=== PATIENT | male | born 1975 | race African-American/Black ===

== ENCOUNTER 2016-11-03 20:44 | Inpatient (IN) ==
--- NOTE | 2016-11-03 21:42 | Emergency Department Note ---
Disposition Time of Disposition: 00:27 <Matthias Andrews - Last Filed: 11/04/16 00:26> <Merary Elder - Last Filed: 11/04/16 03:37> Clinical Impression: Community acquired pneumonia Disposition: Admitted As Inpatient Condition: Fair URI/Sore Throat HPI - General Source: patient Limitations: no limitations Nursing Notes Reviewed: Yes Vital Signs Reviewed: Yes - History of Present Illness Pt Subjective Complaint: fever, cough, flu symptoms, sore throat, nasal congestion, sinus pain, earache, headache Onset (ago): week(s) (2 weeks) Duration: gradually worsening Severity: severe Improves with: nothing Worsens with: swallowing If sputum, description: yellow, green Treatments prior to arrival: "cold medicine" (mucinex) <Matthias Andrews - Last Filed: 11/04/16 00:26> <Merary Elder - Last Filed: 11/04/16 03:37> - General Chief Complaint: ED Shortness of Breath/Dyspnea Stated Complaint: body aches x 2 wks cough/congestion pain in lungs Time Seen by Provider: 11/03/16 21:34 - History of Present Illness HPI Narrative: 40-year-old male presents to the emergency department with multiple complaints. He complains of a cough that is productive of "green, yellow, brown, and vazquez" sputum. He complains of generalized body aches and myalgias. He complains of bilateral rib and chest wall pain that is worsened with inspiration. He complains of bilateral ear pain, sinus pain and pressure, and sore throat. He complains of a few episodes of both vomiting and diarrhea. He complains of a fever greater than 100 degrees Fahrenheit for several days in a row. He denies any hemoptysis. He states that in total, symptoms have been present but gradually worsening over the course of the past 2 weeks. He has taken over-the- counter Mucinex with only modest relief of symptoms. He denies any known sick contacts or recent foreign travel. (Matthias Andrews) - Related Data Allergies Allergy/AdvReac Type Severity Reaction Status Date / Time No Known Allergies Allergy Verified 11/03/16 21:05 Constitutional: Reports: as per HPI, fever, chills. Denies: weakness, weight change Eyes: Denies: eye pain, eye discharge, vision change ENT ED: Reports: as per HPI, throat pain, congestion. Denies: ear pain, dental pain, hearing loss, epistaxis, dysphagia Cardiovascular: Denies: chest pain, palpitations, dyspnea on exertion, edema, syncope Respiratory: Reports: as per HPI, cough, sputum production. Denies: dyspnea, wheezes, hemoptysis, stridor Gastrointestinal: Reports: as per HPI, vomiting, diarrhea. Denies: abdominal pain, nausea, constipation, hematemesis, melena, hematochezia Genitourinary: Denies: urgency, dysuria, frequency, hematuria Musculoskeletal: Reports: as per HPI, myalgia (Generalized). Denies: back pain , neck pain, arthralgia Integumentary: Denies: rash, abrasion, lesions Neurological: Denies: headache, weakness, numbness, paresthesias, confusion, abnormal gait, vertigo Psychiatric: Denies: anxiety, depression, suicidal thoughts, homicidal thoughts , auditory hallucinations, visual hallucinations Endocrine: Denies: fatigue Hematological/Lymphatic: Denies: easy bleeding, easy bruising Allergic/Immunologic: Denies: facial swelling, urticaria <Matthias Andrews R - Last Filed: 11/04/16 00:26> URI PMH - Past Medical History Medical history: Reports: no medical history Psychiatric history: Reports: no psych history - Social History Smoking Status: Current every day smoker Alcohol use: Reports: none Drug use: Reports: opiates, IVDU <Matthias Andrews R - Last Filed: 11/04/16 00:26> Physical Exam - General Limitations: no limitations General appearance: alert - Head Head exam: atraumatic, normocephalic, normal inspection - Eye Eye exam: Present: normal appearance, PERRL, EOMI. Absent: nystagmus - Expanded ENT Exam External ear exam: Present: normal external inspection. Absent: pain with movement, periauricular adenopathy TM/Canal: Hemotympanum: Negative, Erythema: Negative, Bulging: Negative, Effusion: Negative, Perforation: Negative, Loss of Landmarks: Negative, Foreign body: Negative, Cerumen impaction: Negative, Canal discharge: Negative, Canal tenderness: Negative Nose exam: sinus tenderness (Frontal and maxillary sinus tenderness to palpation ). negative: rhinorrhea Mouth exam: Present: normal external inspection, tongue normal. Absent: drooling, trismus, lip swelling, tounge swelling Teeth exam: Present: normal inspection Throat exam: Present: normal inspection, tonsillar erythema (Mild). Absent: tonsillomegaly, tonsillar exudate, R peritonsillar mass, L peritonsillar mass, muffled voice - Neck Neck exam: Present: normal inspection, full ROM, trachea midline, lymphadenopathy (Bilateral tonsillar lymphadenopathy upon palpation) - Chest Chest inspection: Present: normal inspection, symmetric chest wall rise. Absent : tenderness - Respiratory Respiratory exam: Present: other (Lungs sounds coarse to auscultation bilaterally). Absent: respiratory distress, wheezes, stridor, accessory muscle use - Cardiovascular Cardiovascular exam: Present: regular rate, normal rhythm, normal heart sounds - Abdominal Exam Abdominal exam: Present: soft, Non-Tender, normal bowel sounds. Absent: tenderness, distention, guarding, rebound, rigidity - Extremities Exam Extremities exam: Present: normal inspection, full ROM. Absent: tenderness, pedal edema - Neurological Exam Neurological exam: Present: alert, oriented X3 - Psychiatric Psychiatric exam: Present: normal affect, normal mood - Skin Skin exam: Present: warm, dry, intact, normal color. Absent: rash, cyanosis, diaphoresis, erythema, pallor, mottled <Matthias Andrews R - Last Filed: 11/04/16 00:26> Course <Matthias Andrews - Last Filed: 11/04/16 00:26> <Merary Elder - Last Filed: 11/04/16 03:37> Course Narrative: 2359: Case discussed with Dr. Miller. Dr. Alva recommends changing the Levaquin to vancomycin and Zosyn. She also recommends admission to the hospital under the service of the hospitalist for further evaluation and continuation of IV antibiotics. The patient is in agreement with this plan. 0022: I discussed this patient's case with Dr. Francisco. Dr. Francisco accepts the patient for admission under the hospitalist service. (Matthias Andrews R) Vital Signs Temperature 100.3 F H 11/03/16 21:05 Pulse Rate 116 11/03/16 21:05 Respiratory Rate 24 11/03/16 21:05 Blood Pressure 114/68 11/03/16 21:05 O2 Sat by Pulse Oximetry 90 L 11/03/16 21:05 Temperature 98.8 F 11/04/16 01:35 Pulse Rate 100 11/04/16 02:52 Respiratory Rate 18 11/04/16 01:35 Blood Pressure 130/77 11/04/16 01:35 O2 Sat by Pulse Oximetry 99 11/04/16 02:52 Oxygen Delivery Oxygen Delivery Venti Mask Upper Respiratory Infection - Medical Records Medical records reviewed: Yes I reviewed the patient's medical records. - Lab Data Lab results reviewed: Yes I reviewed the patient's lab results. Result diagrams: 11/03/16 22:36 11/03/16 22:36 - Radiology Data Radiology results reviewed: Yes I reviewed the patient's radiology results. <Matthias Andrews - Last Filed: 11/04/16 00:26> - Lab Data Result diagrams: 11/03/16 22:36 11/03/16 22:36 <Merary Elder - Last Filed: 11/04/16 03:37> - MDM Narrative Medical decision making narrative: The patient is tachycardic at 116 and slightly hypoxic at 90% on room air. Upon auscultation of the patient's lungs, as well as hearing him cough and visualizing production of sputum, I do not feel as though a PE is of concern. We will obtain a nasal influenza swab, chest x-ray, and administer nebulized albuterol and reevaluated. (Matthias Andrews) - Lab Data Lab results narrative: Laboratory Last Values WBC 14.7 K/mcL (4.3-11.1) H 11/03/16 22:36 RBC 5.24 M/mcL (4.19-5.50) 11/03/16 22:36 Hgb 13.2 g/dL (12.9-16.9) 11/03/16 22:36 Hct 40.7 % (37.5-50.1) 11/03/16 22:36 MCV 77.7 fL (83.0-100.0) L 11/03/16 22:36 MCH 25.2 pg (28.0-33.3) L 11/03/16 22:36 MCHC 32.4 g/dL (31.6-35.5) 11/03/16 22:36 RDW 14.4 % (11.5-14.5) 11/03/16 22:36 Plt Count 307 K/mcL (140-400) 11/03/16 22:36 MPV 9.8 fL (9.4-12.4) 11/03/16 22:36 Immature Gran % 4.1 % (0-4) H 11/03/16 22:36 Seg Neutrophils % 83.6 % 11/03/16 22:36 Lymphocytes % 6.2 % 11/03/16 22:36 Monocytes % 5.8 % 11/03/16 22:36 Eosinophils % 0.1 % 11/03/16 22:36 Basophils % 0.2 % 11/03/16 22:36 Neutrophils # 12.3 K/mcL (1.6-8.9) H 11/03/16 22:36 Lymphocytes # 0.9 K/mcL (0.6-4.6) 11/03/16 22:36 Monocytes # 0.9 K/mcL (0.0-1.3) 11/03/16 22:36 Eosinophils # 0.0 K/mcL (0.0-0.6) 11/03/16 22:36 Basophils # 0.0 K/mcL (0.0-0.2) 11/03/16 22:36 Immature Plt Fraction 4.4 % (1.1-6.1) 11/03/16 22:36 Sodium 127 mEq/L (136-145) L 11/03/16 22:36 Potassium 4.2 mEq/L (3.5-4.5) 11/03/16 22:36 Chloride 91 mEq/L (98-109) L 11/03/16 22:36 Carbon Dioxide 23 mEq/L (19-29) 11/03/16 22:36 BUN 34 mg/dL (8-26) H 11/03/16 22:36 Creatinine 1.30 mg/dL (0.72-1.25) H 11/03/16 22:36 Est GFR ( Amer) > 60 (> 60) 11/03/16 22:36 Est GFR (Non-Af Amer) > 60 (> 60) 11/03/16 22:36 BUN/Creatinine Ratio 26 (6-26) 11/03/16 22:36 Glucose 94 mg/dL (70-99) 11/03/16 22:36 Calculated Osmolality 271 (280-300) L 11/03/16 22:36 Lactic Acid 1.9 mmol/L (0.5-2.2) 11/03/16 22:36 Calcium 9.3 mg/dL (8.6-10.8) 11/03/16 22:36 (DarrylMatthias R) Lab Results 11/03/16 11/03/16 11/03/16 Range/Units 22:36 22:36 22:36 WBC 14.7 H (4.3-11.1) K/mcL RBC 5.24 (4.19-5.50) M/mcL Hgb 13.2 (12.9-16.9) g/dL Hct 40.7 (37.5-50.1) % MCV 77.7 L (83.0-100.0) fL MCH 25.2 L (28.0-33.3) pg MCHC 32.4 (31.6-35.5) g/dL RDW 14.4 (11.5-14.5) % Plt Count 307 (140-400) K/mcL MPV 9.8 (9.4-12.4) fL Immature Gran % 4.1 H (0-4) % Seg Neutrophils % 83.6 % Lymphocytes % 6.2 % Monocytes % 5.8 % Eosinophils % 0.1 % Basophils % 0.2 % Neutrophils # 12.3 H (1.6-8.9) K/mcL Lymphocytes # 0.9 (0.6-4.6) K/mcL Monocytes # 0.9 (0.0-1.3) K/mcL Eosinophils # 0.0 (0.0-0.6) K/mcL Basophils # 0.0 (0.0-0.2) K/mcL Immature Plt Fraction 4.4 (1.1-6.1) % Sodium 127 L (136-145) mEq/L Potassium 4.2 (3.5-4.5) mEq/L Chloride 91 L (98-109) mEq/L Carbon Dioxide 23 (19-29) mEq/L BUN 34 H (8-26) mg/dL Creatinine 1.30 H (0.72-1.25) mg/dL Est GFR ( Amer) > 60 (> 60) Est GFR (Non-Af Amer) > 60 (> 60) BUN/Creatinine Ratio 26 (6-26) Glucose 94 (70-99) mg/dL Calculated Osmolality 271 L (280-300) Lactic Acid 1.9 (0.5-2.2) mmol/L Calcium 9.3 (8.6-10.8) mg/dL - Radiology Data Chest X-Ray 11/03/16 21:34 IMPRESSION: 1. Bilateral lung infiltrates, right side greater than left, with a probable right pleural effusion. Findings are concerning for pneumonia. D/ / 11/03/2016 22:18:30 Dez Shirley MD / marco Interpreting Provider: Dez Shirley MD (Matthias Andrews) Critical Care Time <Matthias Andrews - Last Filed: 11/04/16 00:26> Total Critical Care Time: 30 <Merary Elder - Last Filed: 11/04/16 03:37> Attestation: The high probability of a clinically significant, sudden or life threatening deterioration of the [respiratory] system(s) required my full and direct attention, intervention and personal management. The aggregate critical care time was [30] minutes. This time is in addition to time spent performing reported procedures but includes the following: [X] Data Review and interpretation [X] Patient assessment and monitoring of vital signs [X] Documentation [X] Medication orders and management (Merary Elder) Attestation Statement <Matthias Andrews - Last Filed: 11/04/16 00:26> <Merary Elder - Last Filed: 11/04/16 03:37> - Attestation Attestation: I personally interviewed and examined this patient and my medical decision- making was reviewed with the PATRICIA, Matthias Andrews. I agree with the documented findings, disposition and treatment plan as described in the documentation. Patient is a 40-year-old otherwise healthy male who presents to the emergency department today with a two-week history of generalized body aches, subjective fevers and chills, mild upper respiratory symptoms that have gradually progressed to cough and worsening shortness of breath with difficulty breathing. Patient with no underlying history of lung disease but is a smoker. Patient arrives with mild respiratory distress with increased work of breathing, tachypnea and hypoxia on room air. Patient is tachycardic but has a stable blood pressure. Patient was placed on a cardiac catheterization technologist, continuous pulse ox with supplemental oxygen initiated, 2 large-bore IVs were established IV fluids were initiated, labs are drawn and sent, and chest film was obtained. Laboratory values show leukocytosis with left shift, mild acute renal insufficiency which I suspect is secondary to dehydration. Patient's rapid flu swab is negative. His lactate is 1.9. Patient's 2 view chest x-ray shows bilateral pneumonia right greater than left with a small right pleural effusion suggestive of pneumonia. Patient was placed on a 40% Ventimask with improvement in oxygenation. We will continue to monitor closely in regards to patient's work of breathing. IV antibiotics were initiated, cultures were obtained and IV fluids continued. Medication will be administered for patient' s fever, at this time tachycardia most likely secondary to fever as well as mild dehydration. Due to patient's respiratory distress we did call the hospitalist and recommend stepdown admission for the patient for bilateral pneumonia. Patient remains mildly tachycardic with fluids infusing, blood pressure is stable at this time. Patient's mentation is good he is awake alert and oriented 4. Patient will be admitted to the hospitalist service for further evaluation and management of his bilateral pneumonia. (Merary Elder)
[2016-11-03] MEDS ORDERED: Albuterol 2.5 MG/3 ML NEBULIZER IH ONE (21:45)
[2016-11-03] MEDS ORDERED: 0.9 % Sodium Chloride 1,000 ML IVC ONE (22:22)
[2016-11-03] MEDS ORDERED: Levofloxacin 750 MG/150 ML 750 MG/150 ML BAG IVPB ONE (22:50)
[2016-11-03 22:51] LABS: Basophils % 0.2 %; Eosinophils % 0.1 %; Hematocrit 40.7 % (37.5-50.1); Hemoglobin 13.2 g/dL (12.9-16.9); Immature Granulocytes % 4.1 % (0-4); Immature Platelets 4.4 % (1.1-6.1); Lymphocytes # 0.9 K/mcL (0.6-4.6); Lymphocytes % 6.2 %; Mean Corpuscular HGB Conc 32.4 g/dL (31.6-35.5); Mean Corpuscular Hemoglobin 25.2 pg (28.0-33.3); Mean Corpuscular Volume 77.7 fL (83.0-100.0); Mean Platelet Volume 9.8 fL (9.4-12.4); Monocytes # 0.9 K/mcL (0.0-1.3); Monocytes % 5.8 %; Neutrophils # 12.3 K/mcL (1.6-8.9); Platelet Count 307 K/mcL (140-400); Red Blood Count 5.24 M/mcL (4.19-5.50); Red Cell Distribution Width 14.4 % (11.5-14.5); Segmented Neutrophils % 83.6 %
[2016-11-03 23:01] LABS: BUN/Creatinine Ratio 26 (6-26); Blood Urea Nitrogen 34 mg/dL (8-26); Calcium 9.3 mg/dL (8.6-10.8); Carbon Dioxide 23 mEq/L (19-29); Chloride 91 mEq/L (98-109); Glucose 94 mg/dL (70-99); Osmolality,Calculated 271 (280-300); Potassium 4.2 mEq/L (3.5-4.5); Sodium 127 mEq/L (136-145); eGFR For African Americans > 60 (> 60); eGFR For Non-African Americans > 60 (> 60)
[2016-11-04] MEDS ORDERED: Piperacillin/Tazobactam 3.375 GM in D5% in Water (Mini-Bag+) 100 ML IVPB ONE
[2016-11-04] MEDS: Vancomycin 1,500 MG in D5% in Water 250 ML IVPB SCH ×2 (00:21→15:28)
[2016-11-04] MEDS ORDERED: Levofloxacin 750 MG/150 ML 750 MG/150 ML BAG IVPB ONE (00:24)
[2016-11-04] MEDS ORDERED: 0.9 % Sodium Chloride 1,000 ML IVC ONE ×2 (00:51→02:37)
--- NOTE | 2016-11-04 02:19 | Internal Med History&Physical ---
<Wes Henderson - Last Filed: 11/04/16 06:00> Date of Encounter: 11/04/16 Time of Encounter: 01:45 Assessment and Plan (1) Acute respiratory failure with hypoxia Current visit: Yes Status: Acute Patient presents with pneumonia, pleural effusion (parapneumonic versus empyema) , and who is requiring 11 L via Ventimask to maintain oxygenation. Continue supplemental oxygen as needed to maintain adequate oxygenation Breathing treatments with duo nebs scheduled and as needed Continue antibiotics with ceftriaxone, Levaquin, vancomycin Patient received 3 L normal saline, continue 125 mL an hour normal saline We will obtain echocardiogram to further evaluate for possible endocarditis UA with reflex culture, strep antigen, Legionella antigen Blood cultures 2 Telemetry Continuous pulse oximetry Consult to pulmonology for assistance in continued management and care and for health evaluating patient pleural effusion (2) Severe sepsis Current visit: Yes Status: Acute Patient presents with sepsis likely pulmonary source, and evidence of end organ damage with an elevated serum creatinine as well as acute respiratory failure requiring 11 L via Ventimask in order to maintain adequate oxygenation. Plan as above (3) Pleural effusion Current visit: Yes Status: Acute Patient has probable right pleural effusion, concerning for parapneumonic effusion versus empyema given his presentation with acute respiratory failure and pneumonia. We will consult pulmonology for assistance and continued management/care Plan as above (4) Community acquired pneumonia Current visit: Yes Status: Acute Patient presents with possible right-sided pleural effusion. Concerning for possible pneumonia. Elevated white count, temperature, tachycardia certainly support this diagnosis. Plan as above (5) REMI (acute kidney injury) Current visit: Yes Status: Acute Patient keep kidney injury likely due to decreased by mouth intake recently, patient sepsis likely contributory, and appears prerenal per the laboratory at this time. Patient received 3 L bolus of normal saline Continue normal saline at 125 mL an hour Lab patient take by mouth We will continue to monitor kidney function with daily chemistry (6) Intravenous drug abuse Current visit: Yes Status: Acute History of IV drug abuse, last use today. Adding to concern of possible bacteremia and endocarditis as well as MRSA infection. Patient found in his room this morning around 5 AM with his own syringe tried to access his IV. Security was called (7) DVT prophylaxis Current visit: Yes Status: Acute 5000 units heparin 3 times a day Internal Medicine - H&P: HPI Chief complaint: Shortness of breath Admitted From: Emergency Dept Plans for Post Hospital Care: Home History of present illness: Mr. Lawrence is a 40 year old male with history of current IV drug usage (heroin) who presents to the ED after 2 weeks worsening respiratory symptoms. He reports having progressively worsening shortness of breath over the last 2 weeks , prompting his presentation to the emergency room last night. He reports in this time has had a cough has been productive of green, yellow, brownish sputum. He also reports body aches as well as bilateral chest wall pain on deep inspiration and coughing. He states today he developed nausea and vomiting , but reports having several episodes of diarrhea earlier. He also reports he is having a fever. He denies sore throat, denies pain with swallowing, denies sinus pain, denies ear pain. Past Med Surg Social Fam HX - Past Medical History Medical history: no medical history Psychiatric history: no psych history - Social History Smoking Status: Current every day smoker Packs per day: one Smokeless Tobacco Status: No Alcohol use: none Drug use: opiates, IVDU - Family History Mother History Unknown: Yes Age: 36 Hx Family Cancer: Yes Internal Medicine - H&P: Meds Allergies No Known Allergies Allergy (Verified 11/03/16 21:05) - Constitutional Constitutional: fever(s), lethargy, weakness, no anorexia, no chills, no excessive sweating - EENT Eyes: no change in vision, no discharge, no pain, no photophobia Nose, mouth and throat: no dysphagia, no nasal discharge, no neck pain, no sore throat - Cardiovascular Cardiovascular ROS IM: as per HPI, chest pain, dyspnea, no diaphoresis, no edema , no lightheadedness, no palpitations - Respiratory Respiratory: as per HPI, cough, dyspnea, pain on inspiration, change in phlegm color, pain with cough, no hemoptysis - Gastrointestinal Gastrointestinal: abdominal pain, diarrhea, no constipation, no fecal incontinence, no hematemesis, no hematochezia, no loose stools, no melena, no nausea, no vomiting - Genitourinary Genitourinary ROS male: no dysuria, no hematuria - Musculoskeletal Musculoskeletal ROS IM: no back pain, no numbness, no tingling - Integumentary Integumentary IM: no rash, no unusual bruising - Neurological Neurological ROS: no confusion, no convulsions, no focal weakness, no numbness, no tingling, no tremor(s), no weakness - Hematologic/Lymphatic Hematologic/Lymphatic: no easy bruising - Constitutional Vitals: Temp Pulse Resp BP Pulse Ox 98.8 F 109 18 130/77 99 11/04/16 01:35 11/04/16 01:35 11/04/16 01:35 11/04/16 01:35 11/04/16 01:35 Exam: General: Cooperative, pleasant, in moderate distress, alert and oriented 3, answers questions appropriately Head: Normocephalic, atraumatic Eye: Conjunctiva pink, EOMI, PERRL Neck: Supple, trachea midline, mucosa moist, vazquez colored sputum and oropharynx Respiratory: Accessory muscle usage of respiration present, decreased breath sounds bilaterally, Rales auscultated over right middle lobe Cardiovascular: Regular rate and rhythm, S1 and S2 present, no murmurs/rubs/ gallops/clicks appreciated, no splinter hemorrhages or raw spots identified GI/abdominal: Nondistended, nontender, soft, normal bowel sounds, no peritoneal signs Extremities: No calf tenderness, noncyanotic, no pedal edema appreciated, warm, lower extremity pulses palpable and symmetrical Neurological: Alert and oriented 3, no facial droop, no focal deficits Skin: Dry, intact, normal color Internal Med - H&P Results - Labs CBC & Chem 7: 11/04/16 04:51 11/04/16 04:51 <Carlos A Smyth R - Last Filed: 11/04/16 11:05> Internal Medicine - H&P: HPI History of present illness: Mr. Lawrence is a 40 year old male All Systems PM: A 10-system review of systems was performed and is negative for pertinent findings except as documented above in the HPI. - Constitutional Vitals: Temp Pulse Resp BP Pulse Ox 98.8 F 87 24 121/83 96 11/04/16 10:40 11/04/16 10:40 11/04/16 10:40 11/04/16 10:40 11/04/16 10:40 Internal Med - H&P Results - Labs CBC & Chem 7: 11/04/16 04:51 11/04/16 04:51 Labs: Short CBC 11/04/16 Range/Units 04:51 WBC 13.8 H (4.3-11.1) K/mcL Hgb 11.9 L (12.9-16.9) g/dL Hct 36.3 L (37.5-50.1) % Plt Count 245 (140-400) K/mcL Neutrophils # 11.0 H (1.6-8.9) K/mcL BMP 11/04/16 04:51 Sodium 130 L Potassium 4.1 Chloride 102 Carbon Dioxide 18 L BUN 23 D Creatinine 0.80 Glucose 109 H Calcium 7.4 L D Liver Function 11/04/16 Range/Units 04:51 Total Bilirubin 1.7 H (0.2-1.2) mg/dL AST 55 H (5-34) Units/L ALT 52 (0-55) Units/L Alkaline Phosphatase 84 (38-126) Units/L Albumin 1.7 L (3.5-5.0) g/dL - Attending Attestation I performed a history and physical examination of the patient and discussed his management with the Resident/Professional Security Officer. I reviewed the residents note and agree with the documented findings and plan of care, with additions as below. 40 year old male with history of IV drug reports progressively worsening shortness of breath over the last 2 weeks. He reports cough productive of in the sputum. O/E: He was hypoxic at presentation to the ER with the oxygen saturation of 87% on room air, tachycardic with heart rate of 116. Diminished breath sounds at the right base; crackles in the right midzone. Labs show leukocytosis, elevated BUN/creatinine. Chest x-ray showed bilateral pneumonia and right pleural effusion. Will treat him with levofloxacin and ceftriaxone for community acquired pneumonia. Pulmonary consultation for further advise on pneumonia and pleural effusion. Will obtain echocardiogram to exclude endocarditis. Empirically on vancomycin, for possible endocarditis.
[2016-11-04] MEDS ORDERED: Ondansetron 4 MG/2 ML VIAL IVP PRN (02:25)
[2016-11-04] MEDS ORDERED: Naloxone 0.4 MG/ML INJ IVP PRN (02:25)
[2016-11-04] MEDS ORDERED: 0.9 % Sodium Chloride 1,000 ML IVC SCH (02:45)
[2016-11-04 04:12] LABS: ABG Base Excess 2.6 mEq/L (-2.0 to 3.0); ABG HCO3 26.2 mEQ/L (21-27); ABG Oxygen Saturation 94 % (95-98); ABG PCO2 36 mmHg (35-45); ABG PH 7.47 pH Units (7.32-7.45); ABG PO2 67 mmHg (85-104); ABG TCO2 27.3 mEq/L (20-26); Blood Gas FiO2 40 %
[2016-11-04] MEDS ORDERED: Ipratropium/Albuterol Neb 3 ML IH PRN (04:13)
[2016-11-04] MEDS: *HR* Heparin 5,000 UNIT/ML VIAL SQ SCH ×4 (05:05→21:37)
[2016-11-04 05:17] LABS: Hematocrit 36.3 % (37.5-50.1); Hemoglobin 11.9 g/dL (12.9-16.9); Mean Corpuscular HGB Conc 32.8 g/dL (31.6-35.5); Mean Corpuscular Hemoglobin 25.9 pg (28.0-33.3); Mean Corpuscular Volume 78.9 fL (83.0-100.0); Mean Platelet Volume 10.2 fL (9.4-12.4); Platelet Count 245 K/mcL (140-400); Red Cell Distribution Width 14.3 % (11.5-14.5)
[2016-11-04 05:38] LABS: Alanine Aminotransferase 52 Units/L (0-55); Albumin/Globulin Ratio 0.3 (1.1-2.2); Alkaline Phosphatase 84 Units/L (38-126); Aspartate Amino Transferase 55 Units/L (5-34); BUN/Creatinine Ratio 29 (6-26); Bilirubin,Total 1.7 mg/dL (0.2-1.2); Carbon Dioxide 18 mEq/L (19-29); Chloride 102 mEq/L (98-109); Globulin 5.5 g/dL (2.4-3.5); Glucose 109 mg/dL (70-99); Osmolality,Calculated 274 (280-300); Sodium 130 mEq/L (136-145); Total Protein 7.2 g/dL (6.0-8.3); eGFR For African Americans > 60 (> 60); eGFR For Non-African Americans > 60 (> 60)
[2016-11-04 05:39] LABS: Albumin 1.7 g/dL (3.5-5.0); Blood Urea Nitrogen 23 mg/dL (8-26); Calcium 7.4 mg/dL (8.6-10.8)
[2016-11-04 05:40] LABS: Potassium 4.1 mEq/L (3.5-4.5)
[2016-11-04 05:44] LABS: INR 1.3; Prothrombin Time 14.5 Seconds (9.4-12.1)
[2016-11-04 05:46] LABS: Lymphocytes # 1.1 K/mcL (0.6-4.6); Monocytes # 1.4 K/mcL (0.0-1.3); Platelet Estimate Normal (Normal); Toxic Granulation Present (Not Present)
[2016-11-04] MEDS: Ipratropium/Albuterol Neb 3 ML IH SCH ×5 (08:16→23:29)
[2016-11-04] MEDS ORDERED: *HR* Promethazine 25 MG/ML VIAL IVP PRN (08:54)
--- NOTE | 2016-11-04 09:15 | Pulmonology Consult Note ---
<Marcie Farmer - Last Filed: 11/04/16 11:26> Date of Encounter: 11/04/16 Time of Encounter: 09:08 Assessment and Plan (1) Acute respiratory failure with hypoxia Current Visit: Yes Status: Acute Patient with acute respiratory failure with hypoxia secondary to multilobular pneumonia. He is requiring 12L supplemental oxygen to maintain oxygenation saturation. Patient denies any history of pulmonary disease or oxygen requirements. Patient may have underlying COPD with smoking history. CT chest showed multilobular pneumonia but no pleural effusion amendable to drainage. 1. Continue unasyn and vancomycine for antibiotic coverage - if legionella comes back positive will have to adjust antibiotic coverage. 2. Continue scheduled breathing treatments. 3. Continue and wean supplemental oxygen as tolerated. 4. Recommend starting prednisone 40mg PO for 5 days to help with the inflammatory process 5. Follow sputum cultures Appreciate consult. Feel free to call with questions or concern. (2) Severe sepsis Current Visit: Yes Status: Acute Severe sepsis secondary to multilobar pneumnoia. WBC is improving. This morning patient is afebrile, heart rate and respiratory rate are both improved. Continue plan as above. (3) Community acquired pneumonia Current Visit: Yes Status: Acute Community acquired multi-lobar pneumonia. No history of travel, recent hospitalization or penitent[facility] time. Continue antibiotics and plan as above. (4) Intravenous drug abuse Current Visit: Yes Status: Acute History of IV drug use. ECHO pending to evaluate for endocarditis. Blood cultures pending. History of Present Illness Consult date: 11/04/16 Reason for consult: cough, hypoxemia, pneumonia, pleural effusion Chief complaint: Productive cough, shortness of breath History of present illness: Mr Lawrence is a 40yo male with PMH including hepatitis C and IV drug use. Patient presented to the ED with chief complaint of progressive shortness of breath for the last 1-2 weeks. He reports associated cough productive of multicolored sputum, body aches, bilateral rib & chest pain worse with deep breaths, decreased PO intake runny nose, and congestion. He reports some episodes of nausea/vomiting and diarrhea. Patient denies changes in vision, ear or sinus pain, sore throat, dysphagia, abdominal pain, changes in bladder function or focal neurological deficits. Denies hemoptysis or unintentional weight loss. Patient had a Tmax of 100.3 here in the ED. He was tachycardic and tachypneic on arrival. CXR showed BL infiltrates and a possible right sided pleural effusion suggestive of pneumonia. On exam this morning, HR and RR appropriate and appears in no acute distress however patient is requiring 12L supplemental O2 via venti mask. Lungs diminished BL bases, right worse than left. No wheezing or rales. No murmurs heard on cardiac exam. Abdomen soft/non-tender. No pedal edema. Patient reports that he does smoke about 1ppd an has been for 15 years. He denies any history of pulmonary disease including COPD or asthma. He has never used inhalers or supplemental oxygen. He denies any family history of lung disease or lung cancer. Past Med Surg Social Fam HX - Past Medical History Medical history: hepatitis Psychiatric history: no psych history - Social History Smoking Status: Current every day smoker Packs per day: one Smokeless Tobacco Status: No Alcohol use: none Drug use: opiates, IVDU Recent Out of Country Travel Within the Last 8 Weeks: No - Family History Mother History Unknown: Yes Age: 36 Hx Family Cancer: Yes Medications and Allergies Buprenorphine HCl/Naloxone HCl [Bunavail 4.2-0.7 mg Film] 1 film BC BID [History] Allergies No Known Allergies Allergy (Verified 11/03/16 21:05) All Systems: A 10-system review of systems was performed and is negative for pertinent findings except as documented above in the HPI. - Constitutional Constitutional: chills, fever(s), no night sweats, no snoring, no weight loss - EENT Eyes: no loss of vision Ears: no decreased hearing, no tinnitus Nose, mouth and throat: nasal congestion, nasal discharge, no change in voice, no dizziness, no dysphagia, no hoarseness, no sinus pain, no sinus pressure, no sore throat - Cardiovascular Cardiovascular: chest pain (with inspriation ), dyspnea, dyspnea on exertion, no diaphoresis, no edema, no irregular heart rhythm, no lightheadedness, no orthopnea, no palpitations, no pedal edema - Respiratory Respiratory: cough, dyspnea, dyspnea on exertion, pain on inspirtation, chest congestion, excessive phlegm production, change in phlegm color, pain with cough , no hemoptysis, no wheezing, no snoring, no stridor - Gastrointestinal Gastrointestinal: diarrhea, nausea, vomiting, no abdominal pain, no hematemesis , no hematochezia, no melena - Genitourinary Genitourinary: no change in urinary stream, no dysuria - Musculoskeletal Musculoskeletal: myalgias - Integumentary Integumentary: no rash - Neurological Neurological: no behavioral changes, no confusion, no dizziness, no tingling, no weakness Physical Examination Vital Signs: Vital Signs, Last 4 Hours Temp Pulse Resp BP Pulse Ox 11/04/16 08:53 100 11/04/16 08:17 19 93 L 11/04/16 07:00 98.4 F 96 19 138/92 93 L General appearance: no acute distress, alert Eyes: nonicteric ENT: oropharynx moist Inspection: normal Auscultation: bilateral: diminished breath sounds Percussion: right: dull Cardiovascular: regular rate and rhythm Gastrointestinal: soft, non-tender, non-distended Integumentary: normal Extremities: no cyanosis, no edema Musculoskeletal: no deformities Gait: normal gait non-focal exam mood appropriate Results - Laboratory Findings CBC and BMP: 11/04/16 04:51 11/04/16 04:51 ABG ABG pH 7.47 pH Units (7.32-7.45) H 11/04/16 03:51 ABG pCO2 36 mmHg (35-45) 11/04/16 03:51 ABG pO2 67 mmHg (85-104) L 11/04/16 03:51 ABG O2 Saturation 94 % (95-98) L 11/04/16 03:51 PT/INR, D-dimer PT 14.5 Seconds (9.4-12.1) H 11/04/16 04:51 Abnormal lab findings: Abnormal lab results WBC 13.8 K/mcL (4.3-11.1) H 11/04/16 04:51 Hgb 11.9 g/dL (12.9-16.9) L 11/04/16 04:51 Hct 36.3 % (37.5-50.1) L 11/04/16 04:51 MCV 78.9 fL (83.0-100.0) L 11/04/16 04:51 MCH 25.9 pg (28.0-33.3) L 11/04/16 04:51 Immature Gran % 4.1 % (0-4) H 11/03/16 22:36 Metamyelocytes % 2.0 % (0) H 11/04/16 04:51 Neutrophils # 11.0 K/mcL (1.6-8.9) H 11/04/16 04:51 Monocytes # 1.4 K/mcL (0.0-1.3) H 11/04/16 04:51 Toxic Granulation Present (Not Present) A 11/04/16 04:51 PT 14.5 Seconds (9.4-12.1) H 11/04/16 04:51 ABG pH 7.47 pH Units (7.32-7.45) H 11/04/16 03:51 ABG pO2 67 mmHg (85-104) L 11/04/16 03:51 ABG Total CO2 27.3 mEq/L (20-26) H 11/04/16 03:51 ABG O2 Saturation 94 % (95-98) L 11/04/16 03:51 Sodium 130 mEq/L (136-145) L 11/04/16 04:51 Carbon Dioxide 18 mEq/L (19-29) L 11/04/16 04:51 BUN/Creatinine Ratio 29 (6-26) H 11/04/16 04:51 Glucose 109 mg/dL (70-99) H 11/04/16 04:51 Calculated Osmolality 274 (280-300) L 11/04/16 04:51 Calcium 7.4 mg/dL (8.6-10.8) L D 11/04/16 04:51 Total Bilirubin 1.7 mg/dL (0.2-1.2) H 11/04/16 04:51 AST 55 Units/L (5-34) H 11/04/16 04:51 Albumin 1.7 g/dL (3.5-5.0) L 11/04/16 04:51 Globulin 5.5 g/dL (2.4-3.5) H 11/04/16 04:51 Albumin/Globulin Ratio 0.3 (1.1-2.2) L 11/04/16 04:51 - Diagnostic Findings Chest x-ray: report reviewed, image reviewed Additional studies: Chest X-Ray 11/03/16 21:34 IMPRESSION: 1. Bilateral lung infiltrates, right side greater than left, with a probable right pleural effusion. Findings are concerning for pneumonia. D/ / 11/03/2016 22:18:30 Dez Shirley MD / marco Interpreting Provider: Dez Shirley MD - Clinical Findings Intake & Output: Intake & Output 11/03/16 11/04/16 11/04/16 23:59 07:59 15:59 Intake Total 2200 / 2450 Output Total 1550 / 2000 Balance 650 / 450 Consult Discharge Plan - Plan Referrals: NO,PCP [Primary Care Provider] - (PATIENT DOES NOT WANT ME TO FIND HIM A DOCTOR. I GAVE HIM THE 1800FIND A DOCTOR NUMBER.) <Verna Small - Last Filed: 11/04/16 16:25> All Systems: A 10-system review of systems was performed and is negative for pertinent findings except as documented above in the HPI. Physical Examination Vital Signs: Vital Signs, Last 4 Hours Temp Pulse Resp BP Pulse Ox 11/04/16 15:34 83 18 97 11/04/16 15:26 98.6 F 90 22 132/79 99 11/04/16 12:54 95 Results - Laboratory Findings CBC and BMP: 11/04/16 04:51 11/04/16 04:51 ABG ABG pH 7.47 pH Units (7.32-7.45) H 11/04/16 03:51 ABG pCO2 36 mmHg (35-45) 11/04/16 03:51 ABG pO2 67 mmHg (85-104) L 11/04/16 03:51 ABG O2 Saturation 94 % (95-98) L 11/04/16 03:51 PT/INR, D-dimer PT 14.5 Seconds (9.4-12.1) H 11/04/16 04:51 Abnormal lab findings: Abnormal lab results WBC 13.8 K/mcL (4.3-11.1) H 11/04/16 04:51 Hgb 11.9 g/dL (12.9-16.9) L 11/04/16 04:51 Hct 36.3 % (37.5-50.1) L 11/04/16 04:51 MCV 78.9 fL (83.0-100.0) L 11/04/16 04:51 MCH 25.9 pg (28.0-33.3) L 11/04/16 04:51 Immature Gran % 4.1 % (0-4) H 11/03/16 22:36 Metamyelocytes % 2.0 % (0) H 11/04/16 04:51 Neutrophils # 11.0 K/mcL (1.6-8.9) H 11/04/16 04:51 Monocytes # 1.4 K/mcL (0.0-1.3) H 11/04/16 04:51 Toxic Granulation Present (Not Present) A 11/04/16 04:51 PT 14.5 Seconds (9.4-12.1) H 11/04/16 04:51 ABG pH 7.47 pH Units (7.32-7.45) H 11/04/16 03:51 ABG pO2 67 mmHg (85-104) L 11/04/16 03:51 ABG Total CO2 27.3 mEq/L (20-26) H 11/04/16 03:51 ABG O2 Saturation 94 % (95-98) L 11/04/16 03:51 Sodium 130 mEq/L (136-145) L 11/04/16 04:51 Carbon Dioxide 18 mEq/L (19-29) L 11/04/16 04:51 BUN/Creatinine Ratio 29 (6-26) H 11/04/16 04:51 Glucose 109 mg/dL (70-99) H 11/04/16 04:51 Calculated Osmolality 274 (280-300) L 11/04/16 04:51 Calcium 7.4 mg/dL (8.6-10.8) L D 11/04/16 04:51 Total Bilirubin 1.7 mg/dL (0.2-1.2) H 11/04/16 04:51 AST 55 Units/L (5-34) H 11/04/16 04:51 Albumin 1.7 g/dL (3.5-5.0) L 11/04/16 04:51 Globulin 5.5 g/dL (2.4-3.5) H 11/04/16 04:51 Albumin/Globulin Ratio 0.3 (1.1-2.2) L 11/04/16 04:51 - Microbiology Findings Microbiology Findings: Microbiology, Last 48 Hours 11/04/16 14:00 Streptococcus pneumoniae Antigen (M - Final Urine,Clean Catch 11/04/16 14:00 Legionella Antigen - Final Urine,Clean Catch - Clinical Findings Intake & Output: Intake & Output 11/04/16 11/04/16 11/04/16 07:59 15:59 23:59 Intake Total 2200 / 2450 360 / 360 Output Total 1550 / 2000 475 / 475 Balance 650 / 450 -115 / -115 - Attending Attestation I examined this patient and my medical decision-making was reviewed with the CEMENT FINISHER HELPER/PA/Advanced Practice Nurse/Resident Physician. I agree with the documented findings, disposition and treatment plan as described except to the extent set forth below. Patient seen and examined. Labs, radiology, chart personally reviewed. Agree with resident's history and physical, assessment, plan with following comments: OBSTETRICAL NURSE: Patient follows commands, but lethargic and sleepy he has received sedative for symptoms suggestive of withdrawal, Pulmonary: Acute hypoxic respiratory failure secondary to multilobar pneumonia. Treatment with broad-spectrum antibiotics and follow-up cultures and sensitivities. Due to his history of substance abuse, septic emboli in the differential diagnosis and echocardiogram has been ordered. If no improvement will consider bronchoscopy. Cardiovascular: stable GI: Nutrition per dietary and GI prophylaxis per routine Heme: DVT prophylaxis per routine ID: Continue antibiotics and plan to de-escalation Renal; urine out put and renal funtion reviewed Endorcine: blood glucose is monitored Lines: all lines checked and no evidence of infections Skin: skin care to prevent pressure ulcers per nursing routine care Discussed with the family at the bedside and thanks for the consult.
[2016-11-04] MEDS: *HR* LORazepam 2 MG/ML VIAL IVP PRN ×2 (09:47→22:08)
[2016-11-04] MEDS: Nicotine 14 MG PATCH.TD24 TD SCH (09:47)
[2016-11-04] MEDS: Lactobacillus 1 EACH CAP.SPRINK PO SCH ×2 (09:47→21:37)
[2016-11-04] MEDS: Folic Acid 1 MG TABLET PO SCH (09:47)
[2016-11-04] MEDS: Pantoprazole 40 MG VIAL IVP SCH (09:48)
[2016-11-04] MEDS: 0.9 % Sodium Chloride 1,000 ML IVC SCH ×3 (09:48→23:32)
[2016-11-04] MEDS: Ampicillin/Sulbactam 3,000 MG in 0.9 % Sodium Chloride Mini Bag 100 ML IVPB SCH ×3 (12:32→23:32)
[2016-11-04 16:32] LABS: Adenovirus Not Detected (Not Detect); Bordetella Pertussis Not Detected (Not Detect); Chlamydophila pneumoniae Not Detected (Not Detect); Coronavirus 229E Not Detected (Not Detect); Coronavirus HKU1 Not Detected (Not Detect); Coronavirus NL63 Not Detected (Not Detect); Coronavirus OC43 Not Detected (Not Detect); Human Metapneumovirus Not Detected (Not Detect); Human Rhinovirus/Enterovirus Not Detected (Not Detect); Influenza A Subtype 2009 H1 Not Detected (Not Detect); Influenza A Untypeable Not Detected (Not Detect); Influenza B Not Detected (Not Detect); Mycoplasma pneumoniae Not Detected (Not Detect); Parainfluenza Virus 1 Not Detected (Not Detect); Parainfluenza Virus 2 Not Detected (Not Detect); Parainfluenza Virus 3 Not Detected (Not Detect); Parainfluenza Virus 4 Not Detected (Not Detect); Respiratory Syncytial Virus Not Detected (Not Detect)
[2016-11-05] MEDS: Vancomycin 1,500 MG in D5% in Water 250 ML IVPB SCH ×2 (00:31→13:31)
[2016-11-05] MEDS ORDERED: Levofloxacin 750 MG/150 ML 750 MG/150 ML BAG IVPB SCH (02:00)
[2016-11-05] MEDS: Ipratropium/Albuterol Neb 3 ML IH SCH ×6 (04:15→23:06)
[2016-11-05] MEDS: *HR* Heparin 5,000 UNIT/ML VIAL SQ SCH ×2 (05:25→15:57)
[2016-11-05] MEDS: Ampicillin/Sulbactam 3,000 MG in 0.9 % Sodium Chloride Mini Bag 100 ML IVPB SCH ×3 (05:25→17:03)
[2016-11-05] MEDS: *HR* LORazepam 2 MG/ML VIAL IVP PRN ×2 (05:28→12:34)
[2016-11-05 06:32] LABS: BUN/Creatinine Ratio 13 (6-26); Calcium 7.7 mg/dL (8.6-10.8); Carbon Dioxide 21 mEq/L (19-29); Chloride 107 mEq/L (98-109); Glucose 107 mg/dL (70-99); Osmolality,Calculated 287 (280-300); eGFR For African Americans > 60 (> 60); eGFR For Non-African Americans > 60 (> 60)
[2016-11-05 06:37] LABS: Blood Urea Nitrogen 9 mg/dL (8-26); Potassium 4.3 mEq/L (3.5-4.5); Sodium 139 mEq/L (136-145)
[2016-11-05 07:44] LABS: Hematocrit 34.3 % (37.5-50.1); Hemoglobin 11.5 g/dL (12.9-16.9); Immature Platelets 4.3 % (1.1-6.1); Mean Corpuscular HGB Conc 33.5 g/dL (31.6-35.5); Mean Corpuscular Hemoglobin 26.1 pg (28.0-33.3); Mean Platelet Volume 10.6 fL (9.4-12.4); Platelet Count 309 K/mcL (140-400); Red Cell Distribution Width 14.5 % (11.5-14.5)
[2016-11-05] MEDS: Folic Acid 1 MG TABLET PO SCH (07:48)
[2016-11-05] MEDS: Lactobacillus 1 EACH CAP.SPRINK PO SCH ×2 (07:48→20:10)
[2016-11-05] MEDS: Pantoprazole 40 MG VIAL IVP SCH (07:57)
[2016-11-05] MEDS: Nicotine 14 MG PATCH.TD24 TD SCH (07:57)
[2016-11-05 09:30] LABS: Lymphocytes # 1.7 K/mcL (0.6-4.6); Monocytes # 0.6 K/mcL (0.0-1.3); Neutrophils # 11.8 K/mcL (1.6-8.9)
[2016-11-05 09:33] LABS: Platelet Estimate Normal (Normal); Toxic Granulation Present (Not Present)
[2016-11-05] MEDS: 0.9 % Sodium Chloride 1,000 ML IVC SCH ×2 (10:37→17:48)
--- NOTE | 2016-11-05 10:54 | ECHO - Doppler Report ---
Echocardiogram Name: Cole Lawrence Date of Study: 11/05/2016 Date: 1975 Ht: 73.0 in Medical Record#: [id number] Age: 40 Wt: 197.0 lb Gender: Male BSA: 2.14 Order #: [id number] Location: [facility] Room #: 2N02 Reading Physician: Nieves Osborne DO Education Consultant: Thomas Meade RN Ordering Physician: Wes Henderson DO Primary Physician: None Indications: R/O Endocarditis Impressions: LVEF 60%. Normal left ventricular size and systolic function. Normal diastolic function of the left ventricle. Normal right ventricular size and function. No significant valvular dysfunction. No pulmonary hypertension. Left Ventricular Wall Motion: Rest Echo Findings All wall segments showed normal motion. Findings: Study Quality * Technically adequate exam. ECG Findings * Normal sinus rhythm. Left Ventricle * LVEF 60%. * Normal LV chamber size, wall thickness and function. * Normal left ventricular diastolic function. Mitral Valve * Normal mitral valve structure. * No mitral stenosis. * Mild mitral regurgitation. Left Atrium * Normal left atrial size. Aortic Valve * No aortic regurgitation. * Trileaflet aortic valve. * Normal aortic valve structure. * No aortic stenosis. Tricuspid Valve * Normal tricuspid valve structure. * Trace tricuspid regurgitation. * Estimated RA pressure is 3 mmHg. * No pulmonary hypertension. * Estimated RVSP is 29 mmHg. Pulmonic Valve * Pulmonic valve is not well visualized. * No pulmonic stenosis. * No pulmonic regurgitation. Pulmonary Artery * Pulmonary artery not well visualized. Right Ventricle * Normal right ventricular structure and function. Right Atrium * Normal right atrial size. Interatrial Septum * No evidence of PFO by color Doppler. IVC * Normal IVC dimensions and inspiratory collapse. History Measurements: BP: 130/ 75 2D Normal Values IVSd: .70 cm 0.6 - 1.0 cm LVIDd: 4.60 cm 3.7 - 5.6 cm LVPWd: .70 cm 0.6 - 1.1 cm LVIDs: 3.50 cm 1.5 - 3.6 cm LA: 4.00 cm 2.0 - 4.0cm %FS: 23.90 cm >25 % LVOT Diam: 2.00 cm LA volume: 77 Mitral Valve Peak E:.77 m/sec Peak A:.56 m/sec E/A Ratio:1.4 Peak E' Lat Sidney:19 cm/s Peak E' Med Sidney:10.5 cm/s E/E' Lat Ratio:4.1 E/E' Med Ratio:7.3 Tricuspid Valve TV Regurg Peak Grad: 26.00mmHg TV Regurg Peak Sidney: 2.54m/sec Updated by Nieves Osborne on 11/05/2016 10:48:18 AM electronically signed on 11/05/2016 10:49:35 AM with status of Final Wall Motion Deleon: 1=Normal, 2=Hypokinesis, 3=Akinesis, 4=Dyskinesis, 5=Aneurysmal, 6=Hyperkinetic, X=Not Visualized (Blank)=Missing
--- NOTE | 2016-11-05 14:00 | Internal Med Progress Note ---
Date of Encounter: 11/05/16 Time of Encounter: 13:58 - Assessment and plan (1) Multifocal pneumonia Current Visit: Yes Status: Acute (2) Severe sepsis Current Visit: Yes Status: Acute (3) Acute respiratory failure with hypoxia Current Visit: Yes Status: Acute (4) DVT prophylaxis Current Visit: Yes Status: Acute (5) Intravenous drug abuse Current Visit: Yes Status: Acute (6) REMI (acute kidney injury) Current Visit: Yes Status: Acute Assessment and plan: Acute resp failure with hypoxemia: In setting of multifocal pneumonia. CT chest no e/o empyema. On antibiotic tx with unasyn and Vancomycin. RVP PCR negative. Oxygen requirement improving. Still remains tacypneic. Pulmonology following. started on steroids Severe sepsis: Secondary to pneumonia.On broad spectrum abx treatment as above. Blood c/s NTD Multifocal pneumonia: Given hx of drug abuse and severity of hypoxia, treate with broad spectrum antibiotic coverage. On Unasyn and Vancomycin. Will deescalate based on c/s and response. Streptococcal antigen, legionella pending. REMI: In seting of dehydration, cytokine mediated in setting of penumonia. Improving. On IV fluids. IV drug abuse: h/o IV heroin abuse. He tried to inject himself while in the hospital. On CIWA protocol. Lorazepam PRN for agitation. DVT prophylaxis: On Sub Q heparin - Time Spent With Patient 25 - 35 minutes - Subjective Interval history: Patient seen and examined at bedside. He is awake and alert. Appears tachypneic. Denies any chest pain, palpitations. - Constitutional Vitals: Temp Pulse Resp BP Pulse Ox 98.5 F 95 24 124/81 91 L 11/05/16 11:36 11/05/16 13:35 11/05/16 11:36 11/05/16 11:36 11/05/16 13:35 - Head Head exam: Present: atraumatic, normocephalic - Eye Eye exam: Present: PERRL, conjuntiva pink, sclera anicteric Pupils: Present: PERRL - Neck Neck exam general surgery: Present: supple, trachea midline. Absent: lymphadenopathy - Respiratory Respiratory exam: Present: rales, rhonchi, tachypnea. Absent: accessory muscle use, CTAB, wheezes - Cardiovascular Cardiovascular exam: Present: RRR, +S1, +S2. Absent: diastolic murmur, gallop, rubs, systolic murmur - GI/Abdominal GI/Abdominal exam: Present: normal bowel sounds, soft, no peritoneal signs. Absent: distended, tenderness - Extremities Exam Extremities exam: Present: warm, radial pulses palpable and symetrical. Absent : calf tenderness, cyanotic, pedal edema - Neurological Exam Neurological exam: Present: CN II-XII intact, oriented X3, no focal deficits. Absent: pronater drift, facial droop, speech deficit - Skin Skin exam: Present: dry, intact Internal Medicine: Result - Labs CBC & Chem 7: 11/05/16 06:57 11/05/16 05:53 Labs: Short CBC 11/05/16 Range/Units 06:57 WBC 14.0 H (4.3-11.1) K/mcL Hgb 11.5 L (12.9-16.9) g/dL Hct 34.3 L (37.5-50.1) % Plt Count 309 (140-400) K/mcL Neutrophils # 11.8 H (1.6-8.9) K/mcL BMP 11/05/16 05:53 Sodium 139 D Potassium 4.3 Chloride 107 Carbon Dioxide 21 BUN 9 D Creatinine 0.71 L Glucose 107 H Calcium 7.7 L - ABG Interpretation ABG results: ABG ABG pH 7.47 pH Units (7.32-7.45) H 11/04/16 03:51 ABG pCO2 36 mmHg (35-45) 11/04/16 03:51 ABG pO2 67 mmHg (85-104) L 11/04/16 03:51 ABG O2 Saturation 94 % (95-98) L 11/04/16 03:51 PT/INR, D-dimer PT 14.5 Seconds (9.4-12.1) H 11/04/16 04:51 - Impressions Impressions Chest X-Ray 11/05/16 01:03 IMPRESSION: Worsening multifocal airspace disease compatible with pneumonia, with small right pleural effusion D/ / Ron Daigle MD / Ron Daigle MD Interpreting Provider: Ron Daigle MD Consult Discharge Plan - Plan Referrals: NO,PCP [Primary Care Provider] - (PATIENT DOES NOT WANT ME TO FIND HIM A DOCTOR. I GAVE HIM THE 1800FIND A DOCTOR NUMBER.)
--- NOTE | 2016-11-05 16:17 | Electrocardiograph Report ---
[address] [address] Test Date: 2016-11-04 Pat Name: Cole Lawrence Department: 110 Room: 2N02 Gender: M Machine Installer: CHRISTOPHER : 1975 Requested By: Haim Ball Order Number: [id number] Reading MD: Fernando Montano MD Measurements Intervals [place] Rate: 89 P: 55 [place]: 167 QRS: 71 QRSD: 96 T: 50 QT: 366 QTc: 413 Interpretive Statements SINUS RHYTHM Electronically Signed On 11-05-2016 16:15:38 EDT by Fernando Montano MD
--- NOTE | 2016-11-05 16:19 | Pulmonology Progress Note ---
Date of Encounter: 11/05/16 Time of Encounter: 07:45 Assessment and Plan (1) Community acquired pneumonia Current Visit: Yes Status: Acute Continue current antibiotics and follow up on the final blood culture if negative, then can de-escalate vancomycin. (2) Multifocal pneumonia Current Visit: Yes Status: Acute Patient on room air now and I suspect he will need O2 on ambulation. When he is more awake, then can do 6 minutes walk test. Subjective Principal diagnosis: pneumonia Interval history: Patient has agitation and received medication for that. Patient on room air now Objective PUL Vital signs: Last Vital Signs Temp 98.5 F 11/05/16 11:36 Pulse 85 11/05/16 16:00 Resp 24 11/05/16 11:36 BP 124/81 11/05/16 11:36 Pulse Ox 93 L 11/05/16 16:00 General appearance: asleep ENT: oropharynx dry Neck: supple Effort: normal Auscultation: bilateral: rhonchi Cardiovascular: regular rate and rhythm Gastrointestinal: normoactive bowel sounds, non-distended Extremities: no cyanosis unable to assess due to mental status Results - Laboratory Findings CBC and BMP: 11/05/16 06:57 11/05/16 05:53 ABG ABG pH 7.47 pH Units (7.32-7.45) H 11/04/16 03:51 ABG pCO2 36 mmHg (35-45) 11/04/16 03:51 ABG pO2 67 mmHg (85-104) L 11/04/16 03:51 ABG O2 Saturation 94 % (95-98) L 11/04/16 03:51 PT/INR, D-dimer PT 14.5 Seconds (9.4-12.1) H 11/04/16 04:51 Abnormal lab findings: Abnormal lab results WBC 14.0 K/mcL (4.3-11.1) H 11/05/16 06:57 Hgb 11.5 g/dL (12.9-16.9) L 11/05/16 06:57 Hct 34.3 % (37.5-50.1) L 11/05/16 06:57 MCV 78.0 fL (83.0-100.0) L 11/05/16 06:57 MCH 26.1 pg (28.0-33.3) L 11/05/16 06:57 Immature Gran % 4.1 % (0-4) H 11/03/16 22:36 Band Neutrophils % 10.0 % (0-4) H 11/05/16 06:57 Metamyelocytes % 2.0 % (0) H 11/04/16 04:51 Neutrophils # 11.8 K/mcL (1.6-8.9) H 11/05/16 06:57 Toxic Granulation Present (Not Present) A 11/05/16 06:57 PT 14.5 Seconds (9.4-12.1) H 11/04/16 04:51 ABG pH 7.47 pH Units (7.32-7.45) H 11/04/16 03:51 ABG pO2 67 mmHg (85-104) L 11/04/16 03:51 ABG Total CO2 27.3 mEq/L (20-26) H 11/04/16 03:51 ABG O2 Saturation 94 % (95-98) L 11/04/16 03:51 Creatinine 0.71 mg/dL (0.72-1.25) L 11/05/16 05:53 Glucose 107 mg/dL (70-99) H 11/05/16 05:53 POC Glucose 122 (58-89) H 11/04/16 01:31 Calcium 7.7 mg/dL (8.6-10.8) L 11/05/16 05:53 Total Bilirubin 1.7 mg/dL (0.2-1.2) H 11/04/16 04:51 AST 55 Units/L (5-34) H 11/04/16 04:51 Albumin 1.7 g/dL (3.5-5.0) L 11/04/16 04:51 Globulin 5.5 g/dL (2.4-3.5) H 11/04/16 04:51 Albumin/Globulin Ratio 0.3 (1.1-2.2) L 11/04/16 04:51 - Microbiology Findings Microbiology Findings: Microbiology, Last 48 Hours 11/04/16 14:30 Sputum Culture - Preliminary Sputum 11/04/16 14:00 Streptococcus pneumoniae Antigen (M - Final Urine,Clean Catch 11/04/16 14:00 Legionella Antigen - Final Urine,Clean Catch - Clinical Findings Intake & Output: Intake & Output 0311/05/16 11/05/16 07:59 15:59 23:59 Intake Total 450 / 450 2345 / 2345 Output Total 450 / 450 Balance 450 / 450 1895 / 1895 Weight 89.4 kg Consult Discharge Plan - Plan Referrals: NO,PCP [Primary Care Provider] - (PATIENT DOES NOT WANT ME TO FIND HIM A DOCTOR. I GAVE HIM THE 1800FIND A DOCTOR NUMBER.)
[2016-11-06] MEDS: *HR* Heparin 5,000 UNIT/ML VIAL SQ SCH ×4 (00:14→20:11)
[2016-11-06] MEDS: Ampicillin/Sulbactam 3,000 MG in 0.9 % Sodium Chloride Mini Bag 100 ML IVPB SCH ×5 (00:15→23:25)
[2016-11-06] MEDS: Vancomycin 1,500 MG in D5% in Water 250 ML IVPB SCH ×2 (01:00→11:28)
[2016-11-06] MEDS: Ipratropium/Albuterol Neb 3 ML IH SCH ×5 (03:44→20:26)
[2016-11-06 05:42] LABS: Basophils % 0.2 %; Eosinophils % 0.2 %; Hematocrit 32.7 % (37.5-50.1); Hemoglobin 10.7 g/dL (12.9-16.9); Immature Granulocytes % 3.8 % (0-4); Lymphocytes # 1.1 K/mcL (0.6-4.6); Mean Corpuscular HGB Conc 32.7 g/dL (31.6-35.5); Mean Corpuscular Hemoglobin 25.9 pg (28.0-33.3); Mean Corpuscular Volume 79.2 fL (83.0-100.0); Mean Platelet Volume 9.2 fL (9.4-12.4); Monocytes # 0.9 K/mcL (0.0-1.3); Monocytes % 7.2 %; Neutrophils # 9.8 K/mcL (1.6-8.9); Platelet Count 371 K/mcL (140-400); Red Blood Count 4.13 M/mcL (4.19-5.50); Red Cell Distribution Width 14.4 % (11.5-14.5); Segmented Neutrophils % 79.6 %
[2016-11-06 06:00] LABS: BUN/Creatinine Ratio 13 (6-26); Blood Urea Nitrogen 9 mg/dL (8-26); Calcium 7.8 mg/dL (8.6-10.8); Carbon Dioxide 20 mEq/L (19-29); Chloride 108 mEq/L (98-109); Glucose 103 mg/dL (70-99); Osmolality,Calculated 285 (280-300); Potassium 3.7 mEq/L (3.5-4.5); Sodium 138 mEq/L (136-145); eGFR For African Americans > 60 (> 60); eGFR For Non-African Americans > 60 (> 60)
[2016-11-06] MEDS: 0.9 % Sodium Chloride 1,000 ML IVC SCH ×4 (06:06→17:28)
--- NOTE | 2016-11-06 08:35 | Pulmonology Progress Note ---
<Marcie Farmer - Last Filed: 11/06/16 09:05> Date of Encounter: 11/06/16 Time of Encounter: 08:35 Assessment and Plan (1) Community acquired pneumonia Current Visit: Yes Status: Acute Patient found to have multifocal pneumonia. O2 requirement increased this morning which may be multifactoral with the pneumonia and sedation medications. Will continue to monitor O2 saturation while continuing antibiotics and breathing treatments. Wean O2 as tolerated. (2) Acute respiratory failure with hypoxia Current Visit: Yes Status: Acute (3) Intravenous drug abuse Current Visit: Yes Status: Acute Subjective Principal diagnosis: Pneumonia Interval history: Patient very sommulent on exam this morning but will nod his head to answer questions. He feels that his breathing and cough are doing better. Patient was on room air however this morning while resting in bed patient's oxygenation saturation decreased to 86% and is currently on 6L supplemental O2 via nasal cannula with O2 saturaiton of 90%. On exam, patient's had course breath sounds with some rhonchi, no wheezing noted. Vitals - patient has been afebrile with HR and RR with normal limits. Objective PUL Vital signs: Last Vital Signs Temp 98.8 F 11/06/16 07:00 Pulse 75 11/06/16 07:00 Resp 18 11/06/16 07:54 BP 120/67 11/06/16 07:00 Pulse Ox 90 L 11/06/16 07:54 General appearance: no acute distress, lethargic Eyes: nonicteric ENT: oropharynx moist Neck: supple Effort: normal Auscultation: bilateral: rhonchi Cardiovascular: regular rate and rhythm Gastrointestinal: soft, non-distended Integumentary: normal Extremities: no cyanosis other (somulent but answer questions) Results - Laboratory Findings CBC and BMP: 11/06/16 04:55 11/06/16 04:55 ABG ABG pH 7.47 pH Units (7.32-7.45) H 11/04/16 03:51 ABG pCO2 36 mmHg (35-45) 11/04/16 03:51 ABG pO2 67 mmHg (85-104) L 11/04/16 03:51 ABG O2 Saturation 94 % (95-98) L 11/04/16 03:51 PT/INR, D-dimer PT 14.5 Seconds (9.4-12.1) H 11/04/16 04:51 Abnormal lab findings: Abnormal lab results WBC 12.3 K/mcL (4.3-11.1) H 11/06/16 04:55 RBC 4.13 M/mcL (4.19-5.50) L 11/06/16 04:55 Hgb 10.7 g/dL (12.9-16.9) L 11/06/16 04:55 Hct 32.7 % (37.5-50.1) L 11/06/16 04:55 MCV 79.2 fL (83.0-100.0) L 11/06/16 04:55 MCH 25.9 pg (28.0-33.3) L 11/06/16 04:55 MPV 9.2 fL (9.4-12.4) L 11/06/16 04:55 Band Neutrophils % 10.0 % (0-4) H 11/05/16 06:57 Metamyelocytes % 2.0 % (0) H 11/04/16 04:51 Neutrophils # 9.8 K/mcL (1.6-8.9) H 11/06/16 04:55 Toxic Granulation Present (Not Present) A 11/05/16 06:57 PT 14.5 Seconds (9.4-12.1) H 11/04/16 04:51 ABG pH 7.47 pH Units (7.32-7.45) H 11/04/16 03:51 ABG pO2 67 mmHg (85-104) L 11/04/16 03:51 ABG Total CO2 27.3 mEq/L (20-26) H 11/04/16 03:51 ABG O2 Saturation 94 % (95-98) L 11/04/16 03:51 Creatinine 0.71 mg/dL (0.72-1.25) L 11/06/16 04:55 Glucose 103 mg/dL (70-99) H 11/06/16 04:55 POC Glucose 122 (58-89) H 11/04/16 01:31 Calcium 7.8 mg/dL (8.6-10.8) L 11/06/16 04:55 Total Bilirubin 1.7 mg/dL (0.2-1.2) H 11/04/16 04:51 AST 55 Units/L (5-34) H 11/04/16 04:51 Albumin 1.7 g/dL (3.5-5.0) L 11/04/16 04:51 Globulin 5.5 g/dL (2.4-3.5) H 11/04/16 04:51 Albumin/Globulin Ratio 0.3 (1.1-2.2) L 11/04/16 04:51 - Microbiology Findings Microbiology Findings: Microbiology, Last 48 Hours 11/06/16 03:25 Streptococcus pneumoniae Antigen (M - Final Urine,Clean Catch 11/06/16 03:25 Legionella Antigen - Final Urine,Clean Catch 11/04/16 14:30 Sputum Culture - Preliminary Sputum 11/04/16 14:00 Streptococcus pneumoniae Antigen (M - Final Urine,Clean Catch 11/04/16 14:00 Legionella Antigen - Final Urine,Clean Catch - Clinical Findings Intake & Output: Intake & Output 11/05/16 11/06/16 11/06/16 23:59 07:59 15:59 Intake Total 1100 / 1100 1100 / 1100 Output Total 550 / 550 200 / 200 Balance 550 / 550 900 / 900 Weight 88.9 kg Consult Discharge Plan - Plan Referrals: NO,PCP [Primary Care Provider] - (PATIENT DOES NOT WANT ME TO FIND HIM A DOCTOR. I GAVE HIM THE 1800FIND A DOCTOR NUMBER.) <Verna Small M - Last Filed: 11/06/16 16:27> Assessment and Plan (1) Community acquired pneumonia Current Visit: Yes Status: Acute (2) Multifocal pneumonia Current Visit: Yes Status: Acute Objective PUL Vital signs: Last Vital Signs Temp 98.4 F 11/06/16 11:27 Pulse 93 11/06/16 11:27 Resp 18 11/06/16 11:27 BP 125/77 11/06/16 11:27 Pulse Ox 88 L 11/06/16 11:27 Results - Laboratory Findings CBC and BMP: 11/06/16 04:55 11/06/16 04:55 ABG ABG pH 7.47 pH Units (7.32-7.45) H 11/04/16 03:51 ABG pCO2 36 mmHg (35-45) 11/04/16 03:51 ABG pO2 67 mmHg (85-104) L 11/04/16 03:51 ABG O2 Saturation 94 % (95-98) L 11/04/16 03:51 PT/INR, D-dimer PT 14.5 Seconds (9.4-12.1) H 11/04/16 04:51 Abnormal lab findings: Abnormal lab results WBC 12.3 K/mcL (4.3-11.1) H 11/06/16 04:55 RBC 4.13 M/mcL (4.19-5.50) L 11/06/16 04:55 Hgb 10.7 g/dL (12.9-16.9) L 11/06/16 04:55 Hct 32.7 % (37.5-50.1) L 11/06/16 04:55 MCV 79.2 fL (83.0-100.0) L 11/06/16 04:55 MCH 25.9 pg (28.0-33.3) L 11/06/16 04:55 MPV 9.2 fL (9.4-12.4) L 11/06/16 04:55 Band Neutrophils % 10.0 % (0-4) H 11/05/16 06:57 Metamyelocytes % 2.0 % (0) H 11/04/16 04:51 Neutrophils # 9.8 K/mcL (1.6-8.9) H 11/06/16 04:55 Toxic Granulation Present (Not Present) A 11/05/16 06:57 PT 14.5 Seconds (9.4-12.1) H 11/04/16 04:51 ABG pH 7.47 pH Units (7.32-7.45) H 11/04/16 03:51 ABG pO2 67 mmHg (85-104) L 11/04/16 03:51 ABG Total CO2 27.3 mEq/L (20-26) H 11/04/16 03:51 ABG O2 Saturation 94 % (95-98) L 11/04/16 03:51 Creatinine 0.71 mg/dL (0.72-1.25) L 11/06/16 04:55 Glucose 103 mg/dL (70-99) H 11/06/16 04:55 POC Glucose 122 (58-89) H 11/04/16 01:31 Calcium 7.8 mg/dL (8.6-10.8) L 11/06/16 04:55 Total Bilirubin 1.7 mg/dL (0.2-1.2) H 11/04/16 04:51 AST 55 Units/L (5-34) H 11/04/16 04:51 Albumin 1.7 g/dL (3.5-5.0) L 11/04/16 04:51 Globulin 5.5 g/dL (2.4-3.5) H 11/04/16 04:51 Albumin/Globulin Ratio 0.3 (1.1-2.2) L 11/04/16 04:51 - Microbiology Findings Microbiology Findings: Microbiology, Last 48 Hours 11/04/16 14:30 Sputum Culture - Preliminary Sputum Gram Positive Cocci 11/06/16 03:25 Streptococcus pneumoniae Antigen (M - Final Urine,Clean Catch 11/06/16 03:25 Legionella Antigen - Final Urine,Clean Catch 11/04/16 14:00 Streptococcus pneumoniae Antigen (M - Final Urine,Clean Catch 11/04/16 14:00 Legionella Antigen - Final Urine,Clean Catch - Clinical Findings Intake & Output: Intake & Output 11/06/16 11/06/16 11/06/16 07:59 15:59 23:59 Intake Total 1220 / 1220 350 / 350 Output Total 200 / 200 450 / 450 Balance 1020 / 1020 -100 / -100 Weight 88.9 kg - Attending Attestation I examined this patient and my medical decision-making was reviewed with the INTERIOR DESIGN INSTRUCTOR/PA/Advanced Practice Nurse/Resident Physician. I agree with the documented findings, disposition and treatment plan as described except to the extent set forth below. Patient seen and examined. Labs, radiology, chart personally reviewed. Agree with resident's history and physical, assessment, plan with following comments: SALES CONSULTANT RESIDENTIAL MANAGER: Patient lethargic and sleepy most likely from receiving medications Pulmonary: Acceptable oxygenation and ventilation. Continue current antibiotics and concern is with his mental status and risk of atelectasis. Will follow-up when necessary, please call for any questions.
[2016-11-06] MEDS: Lactobacillus 1 EACH CAP.SPRINK PO SCH ×2 (08:59→20:11)
[2016-11-06] MEDS: Nicotine 14 MG PATCH.TD24 TD SCH (09:00)
[2016-11-06] MEDS: Pantoprazole 40 MG VIAL IVP SCH (09:00)
[2016-11-06] MEDS: Folic Acid 1 MG TABLET PO SCH (09:00)
--- NOTE | 2016-11-06 16:23 | Internal Med Progress Note ---
Date of Encounter: 11/06/16 Time of Encounter: 16:20 - Assessment and plan (1) Multifocal pneumonia Current Visit: Yes Status: Acute (2) Severe sepsis Current Visit: Yes Status: Acute (3) Acute respiratory failure with hypoxia Current Visit: Yes Status: Acute (4) DVT prophylaxis Current Visit: Yes Status: Acute (5) Intravenous drug abuse Current Visit: Yes Status: Acute (6) REMI (acute kidney injury) Current Visit: Yes Status: Acute Assessment and plan: 40 y/o male with pmh of IV drug use admitted to the hospital with sob and hypoxia. He was diagnosed to have penumonia, urrntly on tx for that with IV antibiotics. # Acute resp failure with hypoxemia: In setting of multifocal pneumonia. CT chest no e/o empyema. On antibiotic tx with unasyn and Vancomycin. RVP PCR negative. Oxygen requirement improving. Sputum c/s grew MRSA. will d/c Unasyn if agreeable with Pulmonology. Still remains tacypneic. On steroids. # Severe sepsis: Secondary to pneumonia.On broad spectrum abx treatment as above. Blood c/s NTD # Multifocal pneumonia: Given hx of drug abuse and severity of hypoxia, treate with broad spectrum antibiotic coverage. On Unasyn and Vancomycin. Will deescalate based on c/s and response. Streptococcal antigen, legionella pending. # REMI: In seting of dehydration, cytokine mediated in setting of penumonia. Improving. On IV fluids. Improving, will d/c tomorrow if renal function remains stable # IV drug abuse: h/o IV heroin abuse. He tried to inject himself while in the hospital. On CIWA protocol. Lorazepam PRN for agitation. # DVT prophylaxis: On Sub Q heparin - Time Spent With Patient 25 - 35 minutes - Subjective Interval history: Patient seen and examined at bedside. He is awake and alert. Appears tachypneic. Denies any chest pain, palpitations. - Constitutional Vitals: Temp Pulse Resp BP Pulse Ox 98.4 F 93 18 125/77 88 L 11/06/16 11:27 11/06/16 11:27 11/06/16 11:27 11/06/16 11:27 11/06/16 11:27 - Head Head exam: Present: atraumatic, normocephalic - Eye Eye exam: Present: PERRL, conjuntiva pink, sclera anicteric Pupils: Present: PERRL - Neck Neck exam general surgery: Present: supple, trachea midline. Absent: lymphadenopathy - Respiratory Respiratory exam: Present: decreased breath sounds, CTAB, rales, rhonchi. Absent: accessory muscle use, wheezes - Cardiovascular Cardiovascular exam: Present: RRR, +S1, +S2. Absent: diastolic murmur, gallop, rubs, systolic murmur - GI/Abdominal GI/Abdominal exam: Present: normal bowel sounds, soft, no peritoneal signs. Absent: distended, tenderness - Extremities Exam Extremities exam: Present: warm, radial pulses palpable and symetrical. Absent : calf tenderness, cyanotic, pedal edema - Neurological Exam Neurological exam: Present: CN II-XII intact, oriented X3, no focal deficits. Absent: pronater drift, facial droop, speech deficit - Skin Skin exam: Present: dry, intact Internal Medicine: Result - Labs CBC & Chem 7: 11/06/16 04:55 11/06/16 04:55 Labs: Short CBC 11/06/16 Range/Units 04:55 WBC 12.3 H (4.3-11.1) K/mcL Hgb 10.7 L (12.9-16.9) g/dL Hct 32.7 L (37.5-50.1) % Plt Count 371 (140-400) K/mcL Neutrophils # 9.8 H (1.6-8.9) K/mcL BMP 11/06/16 04:55 Sodium 138 Potassium 3.7 Chloride 108 Carbon Dioxide 20 BUN 9 Creatinine 0.71 L Glucose 103 H Calcium 7.8 L - ABG Interpretation ABG results: ABG ABG pH 7.47 pH Units (7.32-7.45) H 11/04/16 03:51 ABG pCO2 36 mmHg (35-45) 11/04/16 03:51 ABG pO2 67 mmHg (85-104) L 11/04/16 03:51 ABG O2 Saturation 94 % (95-98) L 11/04/16 03:51 PT/INR, D-dimer PT 14.5 Seconds (9.4-12.1) H 11/04/16 04:51 - Impressions Impressions Chest X-Ray 11/05/16 01:03 IMPRESSION: Worsening multifocal airspace disease compatible with pneumonia, with small right pleural effusion D/ / Ron Daigle MD / Ron Daigle MD Interpreting Provider: Ron Daigle MD Consult Discharge Plan - Plan Referrals: NO,PCP [Primary Care Provider] - (PATIENT DOES NOT WANT ME TO FIND HIM A DOCTOR. I GAVE HIM THE 1800FIND A DOCTOR NUMBER.)
[2016-11-07] MEDS: Ipratropium/Albuterol Neb 3 ML IH SCH ×8 (00:08→23:33)
[2016-11-07] MEDS: Vancomycin 1,500 MG in D5% in Water 250 ML IVPB SCH ×2 (00:22→13:27)
[2016-11-07] MEDS: 0.9 % Sodium Chloride 1,000 ML IVC SCH ×3 (04:19→20:56)
[2016-11-07] MEDS: Ampicillin/Sulbactam 3,000 MG in 0.9 % Sodium Chloride Mini Bag 100 ML IVPB SCH ×4 (05:54→23:22)
[2016-11-07] MEDS: *HR* Heparin 5,000 UNIT/ML VIAL SQ SCH ×3 (05:55→20:56)
[2016-11-07 06:17] LABS: Basophils % 0.3 %; Eosinophils # 0.1 K/mcL (0.0-0.6); Eosinophils % 0.5 %; Hematocrit 33.5 % (37.5-50.1); Hemoglobin 10.7 g/dL (12.9-16.9); Immature Granulocytes % 5.3 % (0-4); Lymphocytes # 1.2 K/mcL (0.6-4.6); Lymphocytes % 9.2 %; Mean Corpuscular HGB Conc 31.9 g/dL (31.6-35.5); Mean Corpuscular Hemoglobin 25.1 pg (28.0-33.3); Mean Corpuscular Volume 78.6 fL (83.0-100.0); Mean Platelet Volume 9.2 fL (9.4-12.4); Monocytes # 0.8 K/mcL (0.0-1.3); Monocytes % 6.2 %; Platelet Count 468 K/mcL (140-400); Red Blood Count 4.26 M/mcL (4.19-5.50); Red Cell Distribution Width 14.6 % (11.5-14.5); Segmented Neutrophils % 78.5 %
[2016-11-07 06:26] LABS: Neutrophils # 10.4 K/mcL (1.6-8.9)
[2016-11-07 06:31] LABS: BUN/Creatinine Ratio 14 (6-26); Blood Urea Nitrogen 10 mg/dL (8-26); Calcium 7.7 mg/dL (8.6-10.8); Carbon Dioxide 20 mEq/L (19-29); Chloride 109 mEq/L (98-109); Glucose 116 mg/dL (70-99); Osmolality,Calculated 286 (280-300); Potassium 3.6 mEq/L (3.5-4.5); Sodium 138 mEq/L (136-145); eGFR For African Americans > 60 (> 60); eGFR For Non-African Americans > 60 (> 60)
[2016-11-07 07:17] LABS: Toxic Granulation Present (Not Present)
[2016-11-07] MEDS: Pantoprazole 40 MG VIAL IVP SCH (10:32)
[2016-11-07] MEDS: Nicotine 14 MG PATCH.TD24 TD SCH ×2 (10:32→13:54)
[2016-11-07] MEDS: Folic Acid 1 MG TABLET PO SCH (10:32)
[2016-11-07] MEDS: Lactobacillus 1 EACH CAP.SPRINK PO SCH ×2 (10:32→20:56)
[2016-11-07] MEDS ORDERED: 0.9 % Sodium Chloride Mini Bag 100 ML ONE (13:01)
--- NOTE | 2016-11-07 15:21 | Internal Med Progress Note ---
Date of Encounter: 11/07/16 Time of Encounter: 15:19 - Assessment and plan (1) Multifocal pneumonia Current Visit: Yes Status: Acute (2) Severe sepsis Current Visit: Yes Status: Acute (3) Acute respiratory failure with hypoxia Current Visit: Yes Status: Acute (4) DVT prophylaxis Current Visit: Yes Status: Acute (5) Intravenous drug abuse Current Visit: Yes Status: Acute (6) REMI (acute kidney injury) Current Visit: Yes Status: Acute Assessment and plan: 40 y/o male with pmh of IV drug use admitted to the hospital with sob and hypoxia. He was diagnosed to have penumonia, urrntly on tx for that with IV antibiotics. # Acute resp failure with hypoxemia: In setting of multifocal pneumonia. CT chest no e/o empyema. On antibiotic tx with unasyn and Vancomycin. RVP PCR negative. Oxygen requirement improving. Sputum c/s grew MRSA. Still remains tacypneic. On steroids. # Severe sepsis: Secondary to pneumonia.On broad spectrum abx treatment as above. Blood c/s NTD # Multifocal pneumonia: Given hx of drug abuse and severity of hypoxia, treate with broad spectrum antibiotic coverage. On Unasyn and Vancomycin. Will deescalate based on c/s and response. # REMI: In seting of dehydration, cytokine mediated in setting of pneumonia. Improving. On IV fluids. Improving, will d/c tomorrow if renal function remains stable # IV drug abuse: h/o IV heroin abuse. He tried to inject himself while in the hospital. On CIWA protocol. Lorazepam PRN for agitation. # DVT prophylaxis: On Sub Q heparin - Time Spent With Patient 25 - 35 minutes - Subjective Interval history: Patient seen and examined at bedside. He is awake and alert. Appears tachypneic. Denies any chest pain, palpitations. - Constitutional Vitals: Temp Pulse Resp BP Pulse Ox 98.2 F 79 26 121/61 95 11/07/16 11:38 11/07/16 11:38 11/07/16 11:38 11/07/16 11:38 11/07/16 11:38 - Head Head exam: Present: atraumatic, normocephalic - Eye Eye exam: Present: PERRL, conjuntiva pink, sclera anicteric Pupils: Present: PERRL - Neck Neck exam general surgery: Present: supple, trachea midline. Absent: lymphadenopathy - Respiratory Respiratory exam: Present: decreased breath sounds, CTAB. Absent: accessory muscle use, rales, rhonchi, wheezes - Cardiovascular Cardiovascular exam: Present: RRR, +S1, +S2. Absent: diastolic murmur, gallop, rubs, systolic murmur - GI/Abdominal GI/Abdominal exam: Present: normal bowel sounds, soft, no peritoneal signs. Absent: distended, tenderness - Extremities Exam Extremities exam: Present: warm, radial pulses palpable and symetrical. Absent : calf tenderness, cyanotic, pedal edema - Neurological Exam Neurological exam: Present: CN II-XII intact, oriented X3, no focal deficits. Absent: pronater drift, facial droop, speech deficit - Skin Skin exam: Present: dry, intact Internal Medicine: Result - Labs CBC & Chem 7: 11/07/16 05:20 11/07/16 05:20 Labs: Short CBC 11/07/16 Range/Units 05:20 WBC 13.2 H (4.3-11.1) K/mcL Hgb 10.7 L (12.9-16.9) g/dL Hct 33.5 L (37.5-50.1) % Plt Count 468 H (140-400) K/mcL Neutrophils # 10.4 H (1.6-8.9) K/mcL BMP 11/07/16 05:20 Sodium 138 Potassium 3.6 Chloride 109 Carbon Dioxide 20 BUN 10 Creatinine 0.72 Glucose 116 H Calcium 7.7 L - ABG Interpretation ABG results: ABG ABG pH 7.47 pH Units (7.32-7.45) H 11/04/16 03:51 ABG pCO2 36 mmHg (35-45) 11/04/16 03:51 ABG pO2 67 mmHg (85-104) L 11/04/16 03:51 ABG O2 Saturation 94 % (95-98) L 11/04/16 03:51 PT/INR, D-dimer PT 14.5 Seconds (9.4-12.1) H 11/04/16 04:51 Consult Discharge Plan - Plan Referrals: NO,PCP [Primary Care Provider] - (PATIENT DOES NOT WANT ME TO FIND HIM A DOCTOR. I GAVE HIM THE 1800FIND A DOCTOR NUMBER.)
[2016-11-07] MEDS: *HR* LORazepam 2 MG/ML VIAL IVP PRN (22:09)
[2016-11-08] MEDS: Vancomycin 1,500 MG in D5% in Water 250 ML IVPB SCH ×2 (00:17→11:09)
[2016-11-08] MEDS: Ipratropium/Albuterol Neb 3 ML IH SCH ×6 (03:34→22:58)
[2016-11-08 05:53] LABS: Basophils % 0.3 %; Eosinophils # 0.1 K/mcL (0.0-0.6); Eosinophils % 0.6 %; Hematocrit 32.8 % (37.5-50.1); Hemoglobin 10.7 g/dL (12.9-16.9); Immature Granulocytes % 4.7 % (0-4); Lymphocytes # 1.2 K/mcL (0.6-4.6); Lymphocytes % 9.4 %; Mean Corpuscular HGB Conc 32.6 g/dL (31.6-35.5); Mean Corpuscular Hemoglobin 25.5 pg (28.0-33.3); Mean Corpuscular Volume 78.3 fL (83.0-100.0); Monocytes # 0.7 K/mcL (0.0-1.3); Monocytes % 5.8 %; Neutrophils # 10.1 K/mcL (1.6-8.9); Platelet Count 480 K/mcL (140-400); Red Blood Count 4.19 M/mcL (4.19-5.50); Red Cell Distribution Width 14.7 % (11.5-14.5); Segmented Neutrophils % 79.2 %
[2016-11-08 06:05] LABS: BUN/Creatinine Ratio 11 (6-26); Blood Urea Nitrogen 7 mg/dL (8-26); Calcium 7.6 mg/dL (8.6-10.8); Carbon Dioxide 20 mEq/L (19-29); Chloride 109 mEq/L (98-109); Glucose 99 mg/dL (70-99); Osmolality,Calculated 284 (280-300); Potassium 3.4 mEq/L (3.5-4.5); Sodium 138 mEq/L (136-145); eGFR For African Americans > 60 (> 60); eGFR For Non-African Americans > 60 (> 60)
[2016-11-08] MEDS: Ampicillin/Sulbactam 3,000 MG in 0.9 % Sodium Chloride Mini Bag 100 ML IVPB SCH ×2 (06:06→11:05)
[2016-11-08] MEDS: *HR* Heparin 5,000 UNIT/ML VIAL SQ SCH ×3 (06:06→21:02)
[2016-11-08] MEDS: Nicotine 14 MG PATCH.TD24 TD SCH (07:18)
[2016-11-08] MEDS: 0.9 % Sodium Chloride 1,000 ML IVC SCH (07:19)
[2016-11-08] MEDS: Pantoprazole 40 MG VIAL IVP SCH (07:38)
[2016-11-08] MEDS: Folic Acid 1 MG TABLET PO SCH (07:38)
[2016-11-08] MEDS: Lactobacillus 1 EACH CAP.SPRINK PO SCH ×2 (07:38→21:02)
--- NOTE | 2016-11-08 13:29 | Internal Med Progress Note ---
Date of Encounter: 11/08/16 Time of Encounter: 13:25 - Assessment and plan (1) Multifocal pneumonia Current Visit: Yes Status: Acute (2) Severe sepsis Current Visit: Yes Status: Acute (3) Acute respiratory failure with hypoxia Current Visit: Yes Status: Acute (4) DVT prophylaxis Current Visit: Yes Status: Acute (5) Intravenous drug abuse Current Visit: Yes Status: Acute (6) REMI (acute kidney injury) Current Visit: Yes Status: Acute Assessment and plan: 40 y/o male with pmh of IV drug use admitted to the hospital with sob and hypoxia. He was diagnosed to have penumonia, urrntly on tx for that with IV antibiotics. # Acute resp failure with hypoxemia: In setting of multifocal pneumonia. CT chest no e/o empyema. Sputum cs grew MRSA. ABX changed to Clindamycin. # Severe sepsis: Secondary to pneumonia. Resolved. On broad spectrum abx treatment as above. Blood c/s NTD # Multifocal pneumonia: Given hx of drug abuse and severity of hypoxia, treat with broad spectrum antibiotic coverage. Improving clinically. Will repeat imaging in am. # REMI: In setting of dehydration, cytokine mediated in setting of pneumonia. Improving. d/c IV fluids # IV drug abuse: h/o IV heroin abuse. He tried to inject himself while in the hospital. On CIWA protocol. Lorazepam PRN for agitation. # DVT prophylaxis: On Sub Q heparin - Time Spent With Patient 25 - 35 minutes - Subjective Interval history: Patient seen and examined at bedside. He is awake and alert. Tachypnea improving. SOB and cough better. Continues to have some sputum production - Constitutional Vitals: Temp Pulse Resp BP Pulse Ox 99.4 F 64 20 124/69 96 11/08/16 11:08 11/08/16 11:08 11/08/16 11:31 11/08/16 11:08 11/08/16 11:31 - Head Head exam: Present: atraumatic, normocephalic - Eye Eye exam: Present: PERRL, conjuntiva pink, sclera anicteric Pupils: Present: PERRL - Neck Neck exam general surgery: Present: supple, trachea midline. Absent: lymphadenopathy - Respiratory Respiratory exam: Present: decreased breath sounds, CTAB, rales. Absent: accessory muscle use, rhonchi, wheezes - Cardiovascular Cardiovascular exam: Present: RRR, +S1, +S2. Absent: diastolic murmur, gallop, rubs, systolic murmur - GI/Abdominal GI/Abdominal exam: Present: normal bowel sounds, soft, no peritoneal signs. Absent: distended, tenderness - Extremities Exam Extremities exam: Present: warm, radial pulses palpable and symetrical. Absent : calf tenderness, cyanotic, pedal edema - Neurological Exam Neurological exam: Present: CN II-XII intact, oriented X3, no focal deficits. Absent: pronater drift, facial droop, speech deficit - Skin Skin exam: Present: dry, intact Internal Medicine: Result - Labs CBC & Chem 7: 11/08/16 05:37 11/08/16 05:37 Labs: Short CBC 11/08/16 Range/Units 05:37 WBC 12.7 H (4.3-11.1) K/mcL Hgb 10.7 L (12.9-16.9) g/dL Hct 32.8 L (37.5-50.1) % Plt Count 480 H (140-400) K/mcL Neutrophils # 10.1 H (1.6-8.9) K/mcL BMP 11/08/16 05:37 Sodium 138 Potassium 3.4 L Chloride 109 Carbon Dioxide 20 BUN 7 L Creatinine 0.65 L Glucose 99 Calcium 7.6 L - ABG Interpretation ABG results: ABG ABG pH 7.47 pH Units (7.32-7.45) H 11/04/16 03:51 ABG pCO2 36 mmHg (35-45) 11/04/16 03:51 ABG pO2 67 mmHg (85-104) L 11/04/16 03:51 ABG O2 Saturation 94 % (95-98) L 11/04/16 03:51 PT/INR, D-dimer PT 14.5 Seconds (9.4-12.1) H 11/04/16 04:51 Consult Discharge Plan - Plan Referrals: NO,PCP [Primary Care Provider] - (PATIENT DOES NOT WANT ME TO FIND HIM A DOCTOR. I GAVE HIM THE 1800FIND A DOCTOR NUMBER.)
[2016-11-08] MEDS: Clindamycin 600 MG/50 ML 600 MG/50 ML IV.SOLN IVPB SCH ×2 (14:37→23:50)
[2016-11-08] MEDS: Acetaminophen 325 MG TABLET PO PRN (17:15)
[2016-11-08 17:46] LABS: Adenovirus F 40/41 PCR Not detected (Not detect); Astrovirus PCR Not detected (Not detect); C.difficile Toxin A/B by PCR Not detected (Not detect); Campylobacter by PCR Not detected (Not detect); Cryptosporidium by PCR Not detected (Not detect); Cyclospora cayetanensis PCR Not detected (Not detect); E. coli O157 by PCR Not detected (Not detect); Entamoeba histolytica PCR Not detected (Not detect); Enteroaggregative E.coli(EAEC) Not detected (Not detect); Enteropathogenic E.coli(EPEC) Not detected (Not detect); Enterotoxigenic E.coli (ETEC) Not detected (Not detect); Giardia lamblia PCR Not detected (Not detect); Norovirus GI/GII PCR Not detected (Not detect); Plesiomonas shigelloides PCR Not detected (Not detect); Rotavirus A PCR Not detected (Not detect); Salmonella PCR Not detected (Not detect); Sapovirus PCR Not detected (Not detect); Shig/EnteroinvasiveE coli EIEC Not detected (Not detect); Shigalike tox-prod E coli STEC Not detected (Not detect); Vibrio PCR Not detected (Not detect); Vibrio cholerae PCR Not detected (Not detect); Yersinia enterocolitica PCR Not detected (Not detect)
[2016-11-09] MEDS: Ipratropium/Albuterol Neb 3 ML IH SCH ×5 (03:22→20:23)
[2016-11-09] MEDS: Acetaminophen 325 MG TABLET PO PRN ×2 (03:56→19:52)
[2016-11-09] MEDS: *HR* Heparin 5,000 UNIT/ML VIAL SQ SCH ×3 (03:57→23:53)
[2016-11-09 04:45] LABS: Hematocrit 35.9 % (37.5-50.1); Hemoglobin 11.3 g/dL (12.9-16.9); Mean Corpuscular HGB Conc 31.5 g/dL (31.6-35.5); Mean Corpuscular Hemoglobin 24.9 pg (28.0-33.3); Mean Corpuscular Volume 79.2 fL (83.0-100.0); Mean Platelet Volume 8.8 fL (9.4-12.4); Platelet Count 502 K/mcL (140-400); Red Blood Count 4.53 M/mcL (4.19-5.50); Red Cell Distribution Width 15.1 % (11.5-14.5)
[2016-11-09 04:56] LABS: BUN/Creatinine Ratio 9 (6-26); Blood Urea Nitrogen 7 mg/dL (8-26); Calcium 7.8 mg/dL (8.6-10.8); Carbon Dioxide 21 mEq/L (19-29); Chloride 111 mEq/L (98-109); Glucose 105 mg/dL (70-99); Osmolality,Calculated 290 (280-300); Potassium 3.5 mEq/L (3.5-4.5); Sodium 141 mEq/L (136-145); eGFR For African Americans > 60 (> 60); eGFR For Non-African Americans > 60 (> 60)
[2016-11-09 05:37] LABS: Lymphocytes # 1.2 K/mcL (0.6-4.6); Monocytes # 0.2 K/mcL (0.0-1.3); Neutrophils # 10.6 K/mcL (1.6-8.9)
--- NOTE | 2016-11-09 08:06 | Internal Med Progress Note ---
Date of Encounter: 11/09/16 Time of Encounter: 14:11 - Assessment and plan (1) Multifocal pneumonia Current Visit: Yes Status: Acute (2) Severe sepsis Current Visit: Yes Status: Acute (3) Acute respiratory failure with hypoxia Current Visit: Yes Status: Acute (4) DVT prophylaxis Current Visit: Yes Status: Acute (5) Intravenous drug abuse Current Visit: Yes Status: Acute (6) REMI (acute kidney injury) Current Visit: Yes Status: Acute Assessment and plan: 40 y/o male with pmh of IV drug use admitted to the hospital with sob and hypoxia. He was diagnosed to have penumonia, currently on tx for that with IV antibiotics. # Acute resp failure with hypoxemia: In setting of multifocal pneumonia. CT chest no e/o empyema. Sputum cs grew MRSA. ABX changed to Clindamycin. # Severe sepsis: Secondary to pneumonia. Resolved. On broad spectrum abx treatment as above. Blood c/s NTD # Multifocal pneumonia: putum c/s grew MRSA. On Clindamycin IV based on sensitivity. Still requiring 4- 5 l of oxygen. Wean off as tolearted. Repeat CXR from am shows consolidation with minmal effusion. Can switch to PO clindamycin on d/c. Pulm following. # REMI: In setting of dehydration, cytokine mediated in setting of pneumonia. Improving # IV drug abuse: h/o IV heroin abuse. He tried to inject himself while in the hospital. On CIWA protocol. Lorazepam PRN for agitation. Agrees torehab. financial services consultant following. # DVT prophylaxis: On Sub Q heparin # Dispo: Discussed with pt regarding drug rehab options which he is agreeable to. Discussed with social service. - Time Spent With Patient 25 - 35 minutes - Subjective Interval history: Patient seen and examined at bedside. Awake and sitting up in chair this morning. Remains tachypneic requiring supplemental oxygen. - Constitutional Vitals: Temp Pulse Resp BP Pulse Ox 98.7 F 68 16 125/84 96 11/09/16 07:00 11/09/16 07:00 11/09/16 07:38 11/09/16 07:00 11/09/16 07:38 - Head Head exam: Present: atraumatic, normocephalic - Eye Eye exam: Present: PERRL, conjuntiva pink, sclera anicteric Pupils: Present: PERRL - Neck Neck exam general surgery: Present: supple, trachea midline. Absent: lymphadenopathy - Respiratory Respiratory exam: Present: decreased breath sounds, CTAB, rales. Absent: accessory muscle use, rhonchi, wheezes - Cardiovascular Cardiovascular exam: Present: RRR, +S1, +S2. Absent: diastolic murmur, gallop, rubs, systolic murmur - GI/Abdominal GI/Abdominal exam: Present: normal bowel sounds, soft, no peritoneal signs. Absent: distended, tenderness - Extremities Exam Extremities exam: Present: warm, radial pulses palpable and symetrical. Absent : calf tenderness, cyanotic, pedal edema - Neurological Exam Neurological exam: Present: CN II-XII intact, oriented X3, no focal deficits. Absent: pronater drift, facial droop, speech deficit - Skin Skin exam: Present: dry, intact Internal Medicine: Result - Labs CBC & Chem 7: 11/09/16 04:25 11/09/16 04:25 Labs: Short CBC 11/09/16 Range/Units 04:25 WBC 12.0 H (4.3-11.1) K/mcL Hgb 11.3 L (12.9-16.9) g/dL Hct 35.9 L (37.5-50.1) % Plt Count 502 H (140-400) K/mcL Neutrophils # 10.6 H (1.6-8.9) K/mcL BMP 11/09/16 04:25 Sodium 141 Potassium 3.5 Chloride 111 H Carbon Dioxide 21 BUN 7 L Creatinine 0.75 Glucose 105 H Calcium 7.8 L - ABG Interpretation ABG results: ABG ABG pH 7.47 pH Units (7.32-7.45) H 11/04/16 03:51 ABG pCO2 36 mmHg (35-45) 11/04/16 03:51 ABG pO2 67 mmHg (85-104) L 11/04/16 03:51 ABG O2 Saturation 94 % (95-98) L 11/04/16 03:51 PT/INR, D-dimer PT 14.5 Seconds (9.4-12.1) H 11/04/16 04:51 - Impressions Impressions Chest X-Ray 11/09/16 00:01 IMPRESSION: Persistent bilateral airspace disease with fluid in the right pleural space. D/ / 11/09/2016 07:30:10 Mode Caal MD / marco Interpreting Provider: Mode Caal MD - Diagnostic Studies Chest x-ray Status: image reviewed by me Consult Discharge Plan - Plan Referrals: NO,PCP [Primary Care Provider] - (PATIENT DOES NOT WANT ME TO FIND HIM A DOCTOR. I GAVE HIM THE 1800FIND A DOCTOR NUMBER.)
[2016-11-09] MEDS ORDERED: Aminoglycoside Consult 1 EACH MC ONE (08:17)
[2016-11-09] MEDS: Clindamycin 600 MG/50 ML 600 MG/50 ML IV.SOLN IVPB SCH ×3 (08:40→23:53)
[2016-11-09] MEDS: Lactobacillus 1 EACH CAP.SPRINK PO SCH ×2 (08:41→19:45)
[2016-11-09] MEDS: Nicotine 14 MG PATCH.TD24 TD SCH (08:41)
[2016-11-09] MEDS: Folic Acid 1 MG TABLET PO SCH (08:41)
[2016-11-10] MEDS: Ipratropium/Albuterol Neb 3 ML IH SCH ×4 (00:02→10:57)
[2016-11-10] MEDS: *HR* Heparin 5,000 UNIT/ML VIAL SQ SCH (05:44)
[2016-11-10 06:36] LABS: Basophils % 0.4 %; Eosinophils # 0.1 K/mcL (0.0-0.6); Eosinophils % 0.9 %; Hematocrit 32.9 % (37.5-50.1); Hemoglobin 10.4 g/dL (12.9-16.9); Immature Granulocytes % 4.1 % (0-4); Lymphocytes # 1.5 K/mcL (0.6-4.6); Lymphocytes % 15.9 %; Mean Corpuscular HGB Conc 31.6 g/dL (31.6-35.5); Mean Corpuscular Hemoglobin 25.2 pg (28.0-33.3); Mean Corpuscular Volume 79.9 fL (83.0-100.0); Mean Platelet Volume 8.9 fL (9.4-12.4); Monocytes # 0.5 K/mcL (0.0-1.3); Monocytes % 5.5 %; Neutrophils # 6.8 K/mcL (1.6-8.9); Platelet Count 452 K/mcL (140-400); Red Blood Count 4.12 M/mcL (4.19-5.50); Red Cell Distribution Width 15.2 % (11.5-14.5); Segmented Neutrophils % 73.2 %
[2016-11-10 06:58] LABS: BUN/Creatinine Ratio 12 (6-26); Blood Urea Nitrogen 9 mg/dL (8-26); Calcium 7.8 mg/dL (8.6-10.8); Carbon Dioxide 22 mEq/L (19-29); Chloride 111 mEq/L (98-109); Glucose 122 mg/dL (70-99); Osmolality,Calculated 294 (280-300); Potassium 3.3 mEq/L (3.5-4.5); Sodium 142 mEq/L (136-145); eGFR For African Americans > 60 (> 60); eGFR For Non-African Americans > 60 (> 60)
[2016-11-10] MEDS: Nicotine 14 MG PATCH.TD24 TD SCH (07:32)
[2016-11-10] MEDS: Lactobacillus 1 EACH CAP.SPRINK PO SCH (07:32)
[2016-11-10] MEDS: Clindamycin 600 MG/50 ML 600 MG/50 ML IV.SOLN IVPB SCH (07:32)
[2016-11-10] MEDS: Folic Acid 1 MG TABLET PO SCH (07:32)
[2016-11-10 11:39] VITALS: BP 117/79
--- NOTE | 2016-11-10 12:48 | Internal Med Progress Note ---
Date of Encounter: 11/10/16 Time of Encounter: 12:46 - Assessment and plan (1) Multifocal pneumonia Current Visit: Yes Status: Acute (2) Severe sepsis Current Visit: Yes Status: Acute (3) Acute respiratory failure with hypoxia Current Visit: Yes Status: Acute (4) DVT prophylaxis Current Visit: Yes Status: Acute (5) Intravenous drug abuse Current Visit: Yes Status: Acute (6) REMI (acute kidney injury) Current Visit: Yes Status: Acute Assessment and plan: 40 y/o male with pmh of IV drug use admitted to the hospital with sob and hypoxia. He was diagnosed to have penumonia, currently on tx for that with IV antibiotics. # Acute resp failure with hypoxemia: In setting of multifocal pneumonia. CT chest no e/o empyema. Sputum cs grew MRSA. ABX changed to Clindamycin. # Severe sepsis: Secondary to pneumonia. Resolved. On broad spectrum abx treatment as above. Blood c/s NTD # Multifocal pneumonia: putum c/s grew MRSA. On Clindamycin IV based on sensitivity. Still requiring 4- 5 l of oxygen. Wean off as tolearted. Repeat CXR from am shows consolidation with minmal effusion. Can switch to PO clindamycin on d/c. Pulm following. # REMI: In setting of dehydration, cytokine mediated in setting of pneumonia. Improving # IV drug abuse: h/o IV heroin abuse. He tried to inject himself while in the hospital. On CIWA protocol. Lorazepam PRN for agitation. Agrees torehab. administrative services officer following. # DVT prophylaxis: On Sub Q heparin # Dispo: Discussed with pt regarding drug rehab options which he is agreeable to. Discussed with social service. - Time Spent With Patient 25 - 35 minutes - Subjective Interval history: Patient seen and examined at bedside. Awake and sitting up in chair this morning. Remains tachypneic requiring supplemental oxygen. - Constitutional Vitals: Temp Pulse Resp BP Pulse Ox 98.2 F 73 18 117/79 94 L 11/10/16 11:36 11/10/16 11:36 11/10/16 11:36 11/10/16 11:36 11/10/16 11:36 - Head Head exam: Present: atraumatic, normocephalic - Eye Eye exam: Present: PERRL, conjuntiva pink, sclera anicteric Pupils: Present: PERRL - Neck Neck exam general surgery: Present: supple, trachea midline. Absent: lymphadenopathy - Respiratory Respiratory exam: Present: CTAB. Absent: accessory muscle use, rales, rhonchi, wheezes - Cardiovascular Cardiovascular exam: Present: RRR, +S1, +S2. Absent: diastolic murmur, gallop, rubs, systolic murmur - GI/Abdominal GI/Abdominal exam: Present: normal bowel sounds, soft, no peritoneal signs. Absent: distended, tenderness - Extremities Exam Extremities exam: Present: warm, radial pulses palpable and symetrical. Absent : calf tenderness, cyanotic, pedal edema - Neurological Exam Neurological exam: Present: CN II-XII intact, oriented X3, no focal deficits. Absent: pronater drift, facial droop, speech deficit - Skin Skin exam: Present: dry, intact Internal Medicine: Result - Labs CBC & Chem 7: 11/10/16 06:19 11/10/16 06:19 Labs: Short CBC 11/10/16 Range/Units 06:19 WBC 9.3 (4.3-11.1) K/mcL Hgb 10.4 L (12.9-16.9) g/dL Hct 32.9 L (37.5-50.1) % Plt Count 452 H (140-400) K/mcL Neutrophils # 6.8 (1.6-8.9) K/mcL BMP 11/10/16 06:19 Sodium 142 Potassium 3.3 L Chloride 111 H Carbon Dioxide 22 BUN 9 Creatinine 0.75 Glucose 122 H Calcium 7.8 L - ABG Interpretation ABG results: ABG ABG pH 7.47 pH Units (7.32-7.45) H 11/04/16 03:51 ABG pCO2 36 mmHg (35-45) 11/04/16 03:51 ABG pO2 67 mmHg (85-104) L 11/04/16 03:51 ABG O2 Saturation 94 % (95-98) L 11/04/16 03:51 PT/INR, D-dimer PT 14.5 Seconds (9.4-12.1) H 11/04/16 04:51 Consult Discharge Plan - Plan Referrals: NO,PCP [Primary Care Provider] - (PATIENT DOES NOT WANT ME TO FIND HIM A DOCTOR. I GAVE HIM THE [id number] A DOCTOR NUMBER.)
--- NOTE | 2016-11-10 13:28 | Discharge Summary ---
Date of Encounter: 11/10/16 Time of Encounter: 13:27 - Discharge Diagnosis (1) Multifocal pneumonia Priority: Primary Status: Acute (2) Severe sepsis Priority: Secondary Status: Acute (3) Acute respiratory failure with hypoxia Priority: Secondary Status: Acute (4) DVT prophylaxis Priority: Secondary Status: Acute (5) Intravenous drug abuse Priority: Secondary Status: Acute (6) REMI (acute kidney injury) Priority: Secondary Status: Acute - Discharge Medications Prescriptions: Clindamycin HCl [Cleocin HCl] 600 mg PO TID 14 Days Home Medications: Clindamycin HCl [Cleocin HCl] 600 mg PO TID 14 Days 11/10/16 [Rx] Allergies/Adverse Reactions: Allergies No Known Allergies Allergy (Verified 11/03/16 21:05) Date of admission: 11/04/16 03:57 Primary care physician: PCP NO Consults: 11/04/16 04:13 Consult to Pulmonology [CONS] Routine Consulting Provider: Pulm [facility] Reason for Consult: Concern for parapneumontic effusion vs empyema Call Completed: No 11/04/16 07:08 Consult to [employer] [CONS] Routine Reason for SW Consult: uncertain of living conditions, and medicade patient. 11/04/16 08:54 Consult to [employer] [CONS] Routine Reason for SW Consult: Rehab - Patient Status Disposition: Left Against Medical Advice Condition: Serious Overall status at discharge: patient is not back to baseline - Discharge Instructions Follow Up With: NO,PCP [Primary Care Provider] - (PATIENT DOES NOT WANT ME TO FIND HIM A DOCTOR. I GAVE HIM THE [id number] A DOCTOR NUMBER.) - Diet and Activity Activity: other Diet: advance to your usual diet Interval History: 40-year-old male with past medical history of IV drug use admitted to the hospital with complaints of shortness of breath and hypoxemia. Patient was diagnosed to have multifocal pneumonia, sputum culture to M RSA. He was started on treatment with vancomycin, which was subsequently changed to PO clindamycin. Patient was in acute respiratory failure with hypoxemia on admission in setting of multifocal pneumonia, which has currently improved. Patient is however requiring oxygen on and off. His saturations have been staying in 91 to 92% off oxygen this morning. Patient is recommended to stay in the hospital, however patient demands to be discharged from the hospital. Patient left against medical advice after being informed that he cannot be discharged from the hospital. Nation was in acute kidney injury on admission which is currently the salt. Patient has history of IV drug abuse, he tried to inject heterodyne himself while in the hospital. He was treated with lorazepam PRN for agitation. Patient was given option to go to rehab facility, to which he states that he will set up that himself. Patient was explained in detail about the complications of getting hypoxemia and going back into respiratory distress which he expresses understanding to. However he demands to leave against medical advice. Patient is given script for clindamycin PO to be continued for 10 more days. He is recommended to follow up with his primary care physician in one week upon which needs to be reassessed for the duration of therapy Hospital course: Mr. Lawrence is a 40 year old male - Time Spent with Patient Total time spent providing and/or coordinating discharge services: Greater than 30 minutes - Constitutional Vitals: Temp Pulse Resp BP Pulse Ox 98.2 F 73 18 117/79 94 L 11/10/16 11:36 11/10/16 11:36 11/10/16 11:36 11/10/16 11:36 11/10/16 11:36 - Head Head exam: Present: atraumatic, normocephalic - Eye Eye exam: Present: PERRL, conjuntiva pink, sclera anicteric Pupils: Present: PERRL - Neck Neck exam general surgery: Present: supple, trachea midline. Absent: lymphadenopathy - Respiratory Respiratory exam: Present: decreased breath sounds, CTAB, prolonged expiratory phase, rales. Absent: accessory muscle use, rhonchi, wheezes - Cardiovascular Cardiovascular exam: Present: RRR, +S1, +S2. Absent: diastolic murmur, gallop, rubs, systolic murmur - GI/Abdominal GI/Abdominal exam: Present: normal bowel sounds, soft, no peritoneal signs. Absent: distended, tenderness - Extremities Exam Extremities exam: Present: warm, radial pulses palpable and symetrical. Absent : calf tenderness, cyanotic, pedal edema - Neurological Exam Neurological exam: Present: CN II-XII intact, oriented X3, no focal deficits. Absent: pronater drift, facial droop, speech deficit - Skin Skin exam: Present: dry, intact
== END 2016-11-10 13:55 | disposition left against medical advice (07) | DRG 720 ==
LOC: EMEROO 20:44 → 2NNU 20:44
PROVIDERS: ADMIT Internal Medicine; ATTEND Internal Medicine